=== PATIENT | male | born 1960 | race American Indian/Alaskan Native ===

== ENCOUNTER 2019-01-16 20:02 | Inpatient (IN) | payer SELFPAY ==
--- NOTE | 2019-01-16 21:09 | C.PDOC ---
History Of Present Illness 58 y/o male presents for complaints of chronic leg pain and chronic cellulitis, worsening over the last couple years. Denies hx of diabetes. Patient also denies fevers, chills. Noticed foul-smelling odor coming from area and seepage from both legs. Time Seen by Provider: 01/16/19 21:08 Chief Complaint (Nursing): Abnormal Skin Integrity History Per: Patient History/Exam Limitations: no limitations Onset/Duration Of Symptoms: Days Current Symptoms Are (Timing): Still Present Location Of Injury: Right: Leg, Left: Leg Quality Of Symptoms: Painful, Draining Severity: Severe Pain Scale Rating Of: 7 Recent travel outside of the [place]: No Additional History Per: Patient Past Medical History Reviewed: Historical Data, Nursing Documentation, Vital Signs Vital Signs: Last Vital Signs Temp 98.3 F 01/16/19 20:58 Pulse 100 H 01/16/19 20:58 Resp 20 01/16/19 20:58 BP 160/92 H 01/16/19 20:58 Pulse Ox 100 01/16/19 20:58 - Medical History PMH: Chronic Pain (and cellulitis to B/L legs) Family History: States: Unknown Family Hx - Social History Hx Tobacco Use: No Hx Alcohol Use: No Hx Substance Use: No - Immunization History Hx Tetanus Toxoid Vaccination: No Hx Influenza Vaccination: No Hx Pneumococcal Vaccination: No Review Of Systems Constitutional: Negative for: Fever, Chills Cardiovascular: Negative for: Chest Pain Respiratory: Negative for: Shortness of Breath Gastrointestinal: Negative for: Nausea, Vomiting Musculoskeletal: Positive for: Leg Pain (B/L leg pain) Skin: Positive for: Rash (Chronic cellulitis to B/L legs) Neurological: Negative for: Weakness, Numbness Physical Exam - Physical Exam Appears: Non-toxic, No Acute Distress Skin: Warm, Dry Head: Normacephalic Eye(s): bilateral: Normal Inspection Oral Mucosa: Moist Neck: Trachea Midline, Supple Chest: Symmetrical Cardiovascular: Rhythm Regular Respiratory: No Rales, No Rhonchi, No Wheezing Gastrointestinal/Abdominal: Bowel Sounds (good), Soft, No Tenderness, No Distention, Other (Obese abdomen) Back: No CVA Tenderness Extremity: Pedal Edema (bilateral), Capillary Refill (< 2 sec), Other (Chronic, significant vascular stasis skin changes to bilateral lower extremities; Large 4x7 cm draining wound to left lateral leg, ulcer, + Seepage from right lower extremity, macerated left ventral aspect of foot) Extremity: Bilateral: Normal ROM Pulses: Left Dorsalis Pedis: Normal, Right Dorsalis Pedis: Normal Neurological/Psych: Oriented x3 Gait: With Assistance ED Course And Treatment - Laboratory Results Result Diagrams: 01/16/19 21:52 01/16/19 21:52 ECG: Interpreted By Me, Viewed By Me ECG Rhythm: Sinus Rhythm (96), Nonspecific Changes O2 Sat by Pulse Oximetry: 100 (RA) Pulse Ox Interpretation: Normal - Radiology CXR: Interpreted by Me, Viewed By Me CXR Interpretation: Yes: Cardiomegaly, Other (vasc congestion). No: Infiltrates, Fracture Progress Note: Labs, EKG, CXR ordered and reviewed. spoke with podiatry, will come and see the pt Disposition Discussed With DrAlyson: Nura Torres Comment: accepted the pt on his service and took over the care at 11:55 PM Doctor Will See Patient In The: Hospital Counseled Patient/Family Regarding: Studies Performed, Diagnosis - Disposition Disposition: HOSPITALIZED Disposition Time: 21:08 Condition: FAIR Forms: [employer] ([place]) - POA Present On Arrival: Pressure Ulcer - Clinical Impression Clinical Impression: Skin ulcer, Cellulitis, Skin maceration, Venous (peripheral) insufficiency - Scribe Statement The provider has reviewed the documentation as recorded by the Brittani Tolliver Provider Attestation: All medical record entries made by the Marielibe were at my direction and personally dictated by me. I have reviewed the chart and agree that the record accurately reflects my personal performance of the history, physical exam, medical decision making, and the department course for this patient. I have also personally directed, reviewed, and agree with the discharge instructions and disposition. Decision To Admit - Pt Status Changed To: Hospital Disposition Of: Inpatient - Admit Certification Admit to Inpatient:: After my assessment, the patient will require hospitalization for at least two midnights. This is because of the severity of symptoms shown, intensity of services needed, and/or the medical risk in this patient being treated as an outpatient. - InPatient: Physician Admission Certification: I certify that this patient requires 2 or more midnights of care for the following reason:: After my assessment, the patient will require hospitalization for at least two midnights. This is because of the severity of symptoms shown, intensity of services needed, and/or the medical risk in this patient being treated as an outpatient. - . Bed Request Type: Regular Admitting Physician: Nura Torres Patient Diagnosis: Skin ulcer, Cellulitis, Skin maceration, Venous (peripheral) insufficiency
[2019-01-16 21:58] LABS: BASO # 0.1 K/uL (0.0-0.2); BASO % 1.2 % (0.0-2.0); EOS # 0.1 K/uL (0.0-0.7); EOS % 1.8 % (0.0-4.0); HEMOGLOBIN 12.1 g/dL (12.0-18.0); LYMPH # 1.2 K/uL (1.0-4.3); LYMPH % 16.2 % (20.0-40.0); MEAN CELL VOLUME 84.8 fL (80.0-94.0); MEAN CORPUSCULAR HEMOGLOBIN 27.4 pg (27.0-31.0); MEAN CORPUSCULAR HGB CONC 32.3 g/dL (33.0-37.0); MEAN PLATELET VOLUME 8.4 fL (7.2-11.7); MONO # 0.8 K/uL (0.0-0.8); MONO % 10.4 % (0.0-10.0); NEUT # 5.4 K/uL (1.8-7.0); NEUT % 70.4 % (50.0-75.0); RBC 4.4 Mil/uL (4.40-5.90); RED CELL DISTRIBUTION WIDTH 17.1 % (11.5-14.5); WHITE BLOOD COUNT 7.6 K/uL (4.8-10.8)
[2019-01-16 21:59] LABS: SQUAMOUS EPITHIAL < 1 /hpf (0-5); URINE BILIRUBIN NEGATIVE (NEGATIVE); URINE CLARITY Hazy (Clear); URINE COLOR Yellow (YELLOW); URINE GLUCOSE (UA) NORMAL (Normal); URINE LEUKOCYTE ESTERASE NEG Leu/uL (Negative); URINE PROTEIN NEGATIVE (NEGATIVE)
[2019-01-16 22:02] LABS: VENOUS BLOOD GAS BASE EXCESS 3.4 mmol/L (0.0-2.0); VENOUS BLOOD GAS PCO2 50 mmHg (40-60); VENOUS BLOOD GAS PO2 17 mm/Hg (30-55); VENOUS BLOOD PH 7.38 (7.32-7.43)
[2019-01-16 22:03] LABS: URINE BLOOD TRACE (NEGATIVE)
[2019-01-16 22:04] LABS: URINE HYALINE CAST 2 /lpf (0-2)
[2019-01-16 22:06] LABS: INR 1.3; PROTHROMBIN TIME 14.4 SECONDS (9.7-12.2)
[2019-01-16 22:11] LABS: ALB/GLOB RATIO 0.9 (1.0-2.1); ALBUMIN 3.8 g/dL (3.5-5.0); ALT/SGPT 63 U/L (21-72); AST/SGOT 106 U/L (17-59); BLOOD UREA NITROGEN 14 mg/dL (9-20); GFR NON-AFRICAN AMERICAN > 60; LIPASE 186 U/L (23-300)
[2019-01-16] MEDS ORDERED: Piperacillin/Tazobact 3.375 gm 100 ML IVPB STA (23:48)
[2019-01-16] MEDS ORDERED: Vancomycin 1 GM 1 GM/250 ML BAG IVPB STA (23:48)
[2019-01-17] MEDS ORDERED: Piperacillin/Tazobact 3.375 gm 100 ML IVPB ONE ×2 (00:30→06:16)
[2019-01-17] MEDS ORDERED: Vancomycin 1 GM 1 GM/250 ML BAG IVPB ONE (00:31)
--- NOTE | 2019-01-17 04:05 | CP.PCM.HP ---
<Virgilio Penn M - Last Filed: 01/17/19 06:07> History of Present Illness - History of Present Illness History of Present Illness: H&P for hospitalist Dr. Trores. 58 M w/ no PMHx presents to ED for leg pain/ leg ulcer / gangrene of b/l lower legs/ chronic venous changes. Patient states he has had leg pain for the last several months and it has been simply getting worse. Patient denies having received medical care. Patient denies trauma, injury to the legs. Patient states the ulcer on L leg occasionally has drainage from it. Patient cannot recall exact duration of leg condition and denies prolonged exposure to the cold weather. Patient states earlier today he had to pass a bowel movement; however, after prolonged duration of holding bowel movement and an inability to find a bathroom, patient had a bowel movement on himself. Patient denies urinary, bowel incontinences. ROS; Denies headaches, vision changes, nausea, vomiting, chest pain, SOB, abdominal pain, constipation, diarrhea, difficulty urinating, PMD: None PMHx: None PSHx: None Allergies: Denies FHx: Mother -breast Ca, Father - diabetes SHx: Denies smoking, drinking, drug use, states he lives in a rental Present on Admission - Present on Admission Any Indicators Present on Admission: No History of DVT/PE: No History of Uncontrolled Diabetes: No Urinary Catheter: No Decubitus Ulcer Present: No Review of Systems - Constitutional Constitutional: absent: Chills, Headache - EENT Eyes: absent: Blurred Vision, Change in Vision Ears: absent: Decreased Hearing, Ear Discharge Nose/Mouth/Throat: absent: Nasal Congestion - Cardiovascular Cardiovascular: absent: Chest Pain, Chest Pain at Rest - Respiratory Respiratory: absent: Dyspnea, Dyspnea on Exertion - Gastrointestinal Gastrointestinal: absent: Constipation, Diarrhea - Genitourinary Genitourinary: absent: Change in Urinary Stream - Musculoskeletal Musculoskeletal: absent: Arthralgias Additional comments: L leg pain - Integumentary Integumentary: Wounds Additional comments: hyperpigmentation of b/l le - Neurological Neurological: absent: Abnormal Hearing, Numbness - Psychiatric Psychiatric: absent: Confusion, Depression Past Patient History - Infectious Disease Hx of Infectious Diseases: None - Past Social History Smoking Status: Never Smoked - PSYCHIATRIC Hx Substance Use: No - SURGICAL HISTORY Hx Surgeries: No - ANESTHESIA Hx Anesthesia: No Meds Allergies/Adverse Reactions: Allergies Allergy/AdvReac Type Severity Reaction Status Date / Time No Known Allergies Allergy Verified 01/16/19 21:00 Physical Exam - Constitutional Appears: Non-toxic, No Acute Distress - Head Exam Head Exam: NORMAL INSPECTION - Eye Exam Eye Exam: EOMI, Normal appearance Pupil Exam: NORMAL ACCOMODATION - ENT Exam ENT Exam: Mucous Membranes Moist - Respiratory Exam Respiratory Exam: Clear to Auscultation Bilateral, NORMAL BREATHING PATTERN. absent: Rales, Rhonchi, Wheezes - Cardiovascular Exam Cardiovascular Exam: +S1, +S2. absent: Systolic Murmur - GI/Abdominal Exam GI & Abdominal Exam: Normal Bowel Sounds, Soft - Extremities Exam Extremities exam: Negative for: calf tenderness Additional comments: Left LE anterior/ lateral skin ulcer/ cellulits approximately 7 cm by 7cm no drainage noted - hyperpigmented skin, dry, pealing off - B/L Feet gangrenous in appearing, foul order - Back Exam Back exam: absent: CVA tenderness (L), CVA tenderness (R) - Neurological Exam Neurological exam: Alert, CN II-XII Intact, Oriented x3 - Psychiatric Exam Psychiatric exam: Normal Affect, Normal Mood Results - Vital Signs Recent Vital Signs: Last Vital Signs Temp 98.3 F 01/16/19 20:58 Pulse 100 H 01/16/19 20:58 Resp 20 01/16/19 20:58 BP 160/92 H 01/16/19 20:58 Pulse Ox 100 01/16/19 23:57 - Labs Result Diagrams: 01/16/19 21:52 01/16/19 21:52 Labs: Laboratory Results - last 24 hr 01/16/19 01/16/19 01/16/19 21:52 21:52 21:52 WBC 7.6 RBC 4.40 Hgb 12.1 Hct 37.3 MCV 84.8 MCH 27.4 MCHC 32.3 L RDW 17.1 H Plt Count 323 MPV 8.4 Neut % (Auto) 70.4 Lymph % (Auto) 16.2 L [place] % (Auto) 10.4 H Eos % (Auto) 1.8 Baso % (Auto) 1.2 Neut # (Auto) 5.4 Lymph # (Auto) 1.2 [place] # (Auto) 0.8 Eos # (Auto) 0.1 Baso # (Auto) 0.1 PT 14.4 H INR 1.3 APTT 36 H pO2 VBG pH VBG pCO2 VBG HCO3 VBG Total CO2 VBG O2 Sat (Calc) VBG Base Excess VBG Potassium Glucose Lactate Sodium Potassium Chloride Carbon Dioxide Anion Gap BUN Creatinine Est GFR ( Amer) Est GFR (Non-Af Amer) Random Glucose Calcium Magnesium Total Bilirubin AST ALT Alkaline Phosphatase NT-Pro-B Natriuret Pep Total Protein Albumin Globulin Albumin/Globulin Ratio Lipase Venous Blood Potassium Urine Color Yellow Urine Clarity Hazy Urine pH 6.0 Ur Specific [place] 1.013 Urine Protein Negative Urine Glucose (UA) Normal Urine Ketones Negative Urine Blood Trace H Urine Nitrate Negative Urine Bilirubin Negative Urine Urobilinogen 2.0 Ur Leukocyte Esterase Neg Urine WBC (Auto) 3 Urine RBC (Auto) 1 Ur Squamous Epith Cells < 1 Hyaline Casts 2 01/16/19 01/16/19 01/17/19 21:52 21:58 01:07 WBC RBC Hgb Hct MCV MCH MCHC RDW Plt Count MPV Neut % (Auto) Lymph % (Auto) [place] % (Auto) Eos % (Auto) Baso % (Auto) Neut # (Auto) Lymph # (Auto) [place] # (Auto) Eos # (Auto) Baso # (Auto) PT INR APTT pO2 17 L VBG pH 7.38 VBG pCO2 50 VBG HCO3 25.6 VBG Total CO2 31.1 H VBG O2 Sat (Calc) 28.3 L VBG Base Excess 3.4 H VBG Potassium 3.1 L Glucose 98 Lactate 1.5 Sodium 140 143.0 Potassium 3.5 L Chloride 105 111.0 H Carbon Dioxide 28 Anion Gap 10 BUN 14 Creatinine 1.0 Est GFR ( Amer) > 60 Est GFR (Non-Af Amer) > 60 Random Glucose 107 Calcium 9.0 Magnesium 2.1 Total Bilirubin 1.1 AST 106 H ALT 63 Alkaline Phosphatase 62 NT-Pro-B Natriuret Pep 100 Total Protein 7.8 Albumin 3.8 Globulin 4.1 H Albumin/Globulin Ratio 0.9 L Lipase 186 Venous Blood Potassium 3.1 L Urine Color Urine Clarity Urine pH Ur Specific [place] Urine Protein Urine Glucose (UA) Urine Ketones Urine Blood Urine Nitrate Urine Bilirubin Urine Urobilinogen Ur Leukocyte Esterase Urine WBC (Auto) Urine RBC (Auto) Ur Squamous Epith Cells Hyaline Casts Assessment & Plan - Assessment and Plan (Free Text) Assessment: 58 M comes to ED for evaluation of feet, pt has gangrenous appearance of b/l feet, left leg ulcer, skin break down of lower extremities knee distally. Plan: B/L gangrene feet Leg ulcer/cellulits - Vanc & Zosyn - CT LE subcutaneous edema - F/u podiatry recs - F/u echo - F/u blood cultures PPx - DVT: heparin 5000 units SC <Nura Torres - Last Filed: 01/17/19 06:17> Results - Vital Signs Recent Vital Signs: Last Vital Signs Temp 99.5 F 01/17/19 04:57 Pulse 94 H 01/17/19 04:57 Resp 16 01/17/19 04:57 BP 172/82 H 01/17/19 04:57 Pulse Ox 100 01/17/19 04:57 - Labs Result Diagrams: 01/16/19 21:52 01/16/19 21:52 Labs: Laboratory Results - last 24 hr 01/16/19 01/16/19 01/16/19 21:52 21:52 21:52 WBC 7.6 RBC 4.40 Hgb 12.1 Hct 37.3 MCV 84.8 MCH 27.4 MCHC 32.3 L RDW 17.1 H Plt Count 323 MPV 8.4 Neut % (Auto) 70.4 Lymph % (Auto) 16.2 L [place] % (Auto) 10.4 H Eos % (Auto) 1.8 Baso % (Auto) 1.2 Neut # (Auto) 5.4 Lymph # (Auto) 1.2 [place] # (Auto) 0.8 Eos # (Auto) 0.1 Baso # (Auto) 0.1 PT 14.4 H INR 1.3 APTT 36 H pO2 VBG pH VBG pCO2 VBG HCO3 VBG Total CO2 VBG O2 Sat (Calc) VBG Base Excess VBG Potassium Glucose Lactate Sodium Potassium Chloride Carbon Dioxide Anion Gap BUN Creatinine Est GFR ( Amer) Est GFR (Non-Af Amer) Random Glucose Calcium Magnesium Total Bilirubin AST ALT Alkaline Phosphatase NT-Pro-B Natriuret Pep Total Protein Albumin Globulin Albumin/Globulin Ratio Lipase Venous Blood Potassium Urine Color Yellow Urine Clarity Hazy Urine pH 6.0 Ur Specific [place] 1.013 Urine Protein Negative Urine Glucose (UA) Normal Urine Ketones Negative Urine Blood Trace H Urine Nitrate Negative Urine Bilirubin Negative Urine Urobilinogen 2.0 Ur Leukocyte Esterase Neg Urine WBC (Auto) 3 Urine RBC (Auto) 1 Ur Squamous Epith Cells < 1 Hyaline Casts 2 01/16/19 01/16/19 01/17/19 21:52 21:58 01:07 WBC RBC Hgb Hct MCV MCH MCHC RDW Plt Count MPV Neut % (Auto) Lymph % (Auto) [place] % (Auto) Eos % (Auto) Baso % (Auto) Neut # (Auto) Lymph # (Auto) [place] # (Auto) Eos # (Auto) Baso # (Auto) PT INR APTT pO2 17 L VBG pH 7.38 VBG pCO2 50 VBG HCO3 25.6 VBG Total CO2 31.1 H VBG O2 Sat (Calc) 28.3 L VBG Base Excess 3.4 H VBG Potassium 3.1 L Glucose 98 Lactate 1.5 Sodium 140 143.0 Potassium 3.5 L Chloride 105 111.0 H Carbon Dioxide 28 Anion Gap 10 BUN 14 Creatinine 1.0 Est GFR ( Amer) > 60 Est GFR (Non-Af Amer) > 60 Random Glucose 107 Calcium 9.0 Magnesium 2.1 Total Bilirubin 1.1 AST 106 H ALT 63 Alkaline Phosphatase 62 NT-Pro-B Natriuret Pep 100 Total Protein 7.8 Albumin 3.8 Globulin 4.1 H Albumin/Globulin Ratio 0.9 L Lipase 186 Venous Blood Potassium 3.1 L Urine Color Urine Clarity Urine pH Ur Specific [place] Urine Protein Urine Glucose (UA) Urine Ketones Urine Blood Urine Nitrate Urine Bilirubin Urine Urobilinogen Ur Leukocyte Esterase Urine WBC (Auto) Urine RBC (Auto) Ur Squamous Epith Cells Hyaline Casts Assessment & Plan - Date & Time Date: 01/17/19 (I have seen and examined the patient. I agree with the findings and plan of care as documented by Dr. Pnen. Patient with lower extremity ulcers and cellulitis. Chronic venous stasis changes. Vascular insufficiency. Consult to podiatry. Radha and Sandra for now. Wound and blood cultures. Monitor for acute changes.) Time: 06:15 Attending/Attestation - Attestation I have personally seen and examined this patient.: Yes I have fully participated in the care of the patient.: Yes I have reviewed all pertinent clinical information: Yes
[2019-01-17] MEDS: Piperacill/Tazo 3.375gm in Dex 3.375 GM/50 ML BAG IVPB SCH ×4 (06:10→23:53)
[2019-01-17 06:51] LABS: BASO # 0.1 K/uL (0.0-0.2); BASO % 1.2 % (0.0-2.0); EOS # 0.1 K/uL (0.0-0.7); EOS % 1.1 % (0.0-4.0); HEMOGLOBIN 10.6 g/dL (12.0-18.0); LYMPH # 1.1 K/uL (1.0-4.3); LYMPH % 13.5 % (20.0-40.0); MEAN CORPUSCULAR HEMOGLOBIN 27.7 pg (27.0-31.0); MEAN PLATELET VOLUME 8.4 fL (7.2-11.7); MONO # 0.8 K/uL (0.0-0.8); MONO % 10.1 % (0.0-10.0); NEUT # 5.8 K/uL (1.8-7.0); NEUT % 74.1 % (50.0-75.0); RBC 3.84 Mil/uL (4.40-5.90); RED CELL DISTRIBUTION WIDTH 16.8 % (11.5-14.5); WHITE BLOOD COUNT 7.8 K/uL (4.8-10.8)
[2019-01-17 07:03] LABS: ALB/GLOB RATIO 0.9 (1.0-2.1); ALBUMIN 3.1 g/dL (3.5-5.0); ALT/SGPT 61 U/L (21-72); AST/SGOT 87 U/L (17-59); BLOOD UREA NITROGEN 10 mg/dL (9-20); CALCIUM 8.2 mg/dl (8.6-10.4); GFR NON-AFRICAN AMERICAN > 60
[2019-01-17] MEDS ORDERED: Potassium Chloride 20 mEq ER Tab PO ONE ×2 (07:45→10:00)
--- NOTE | 2019-01-17 10:04 | CT ---
Date of service: 01/16/2019 PROCEDURE: CT of the lower extremities without contrast HISTORY: tib/fib. ankle feet, lower extremity swelling and cellulitis COMPARISON: No prior similar study available for comparison. TECHNIQUE: Axial and reformatted coronal and sagittal CT images of the lower extremities were obtained without IV contrast administration. Total exam DLP: 568.8 FINDINGS: There is a diffuse subcutaneous edema and fat stranding in the lower extremities more prominent [id number] associated with mild skin thickening especially in the distal lower extremity. No evidence of discrete fluid collection or drainable fluid collection. No definite evidence of cortical erosion or periosteal thickening noted in the lower extremity to suggest acute osteomyelitis. Mild diffuse hyperattenuation of the muscles noted [id number] suggestive of possible mild myositis. IMPRESSION: Diffuse lower extremities edema and subcutaneous stranding associated with slight skin thickening. The differential consideration includes CHF versus venous or arterial disease. No evidence of abscess formation or subcutaneous emphysema. No CT evidence of osteomyelitis. Preliminary report was submitted by [facility] Radiology.
--- NOTE | 2019-01-17 10:18 | RAD ---
Date of service: 01/16/2019 HISTORY: SOB COMPARISON: None available. FINDINGS: LUNGS: No active pulmonary disease. PLEURA: No significant pleural effusion identified, no pneumothorax apparent. CARDIOVASCULAR: No aortic atherosclerotic calcification present. Cardiac size appears somewhat prominent, at least in part due to frontal technique. No pulmonary vascular congestion. OSSEOUS STRUCTURES: No significant abnormalities. VISUALIZED UPPER ABDOMEN: Normal. OTHER FINDINGS: None. IMPRESSION: Possible cardiomegaly. No pulmonary vascular congestion. No acute consolidation bilaterally.
[2019-01-17] MEDS: Vancomycin 1 gm/NS 200 ml 1 GM/200 ML BAG IVPB SCH (12:16)
--- NOTE | 2019-01-17 13:35 | CP.PCM.PN ---
<Lynda Cacereseca - Last Filed: 01/17/19 16:07> Subjective - Date & Time of Evaluation Date of Evaluation: 01/17/19 Time of Evaluation: 08:40 - Subjective Subjective: Patient examined at bedside in no acute distress. Patient reports LE pain is much improved since admission. Patient reports he has no history of medical care, and no diagnoses he knows of. Denies chest pain, orthopnea, dyspnea on exertion, cough, abdominal distension, previous episode of edema Objective - Vital Signs/Intake and Output Vital Signs (last 24 hours): Temp Pulse Resp BP Pulse Ox 98.8 F 110 H 18 101/63 100 01/17/19 08:25 01/17/19 08:25 01/17/19 08:25 01/17/19 08:25 01/17/19 08:25 - Medications Medications: Current Medications Heparin Sodium (Porcine) (Heparin) 5,000 units SC Q8 [facility] Last Admin: 01/17/19 06:26 Dose: 5,000 units Piperacillin Sod/Tazobactam Sod (Zosyn 3.375 Gm Iv Premix) 3.375 gm in 50 mls @ 100 mls/hr IVPB Q6H [facility]; Protocol Last Admin: 01/17/19 11:36 Dose: 100 mls/hr Vancomycin/Sodium Chloride (Vancomycin 1 Gm/Ns 200 Ml) 1 gm in 200 mls @ 133 mls/hr IVPB Q12H [facility]; Protocol Stop: 01/22/19 12:01 Last Admin: 01/17/19 12:16 Dose: 133 mls/hr Potassium Chloride (Potassium Chloride 20 Meq/100 Ml) 20 meq in 100 mls @ 50 mls/hr IVPB ONCE ONE Stop: 01/17/19 15:27 - Labs Labs: 01/17/19 06:47 01/17/19 06:47 PT 14.4 SECONDS (9.7-12.2) H 01/16/19 21:52 INR 1.3 01/16/19 21:52 APTT 36 SECONDS (21-34) H 01/16/19 21:52 - Constitutional Appears: Non-toxic, No Acute Distress, Unkempt - Head Exam Head Exam: ATRAUMATIC, NORMAL INSPECTION, NORMOCEPHALIC - Eye Exam Eye Exam: EOMI, Normal appearance - ENT Exam ENT Exam: Mucous Membranes Moist, Normal Exam - Neck Exam Neck Exam: Normal Inspection - Respiratory Exam Respiratory Exam: Clear to Ausculation Bilateral, NORMAL BREATHING PATTERN. absent: Decreased Breath Sounds, Rales, Wheezes - Cardiovascular Exam Cardiovascular Exam: REGULAR RHYTHM, +S1, +S2. absent: Tachycardia - GI/Abdominal Exam GI & Abdominal Exam: Soft, Normal Bowel Sounds. absent: Distended, Tenderness - Extremities Exam Extremities Exam: Pedal Edema (3+ b/l) Additional comments: LE: b/l LE pitting edema, 3+, toes to below knees erythema dry, flaking skin diffusely distal lateral LLE wounds exposed, shallow, weeping serous fluid, pink moist tissue skin discoloration left foot>right - Neurological Exam Neurological Exam: Alert, Awake - Psychiatric Exam Psychiatric exam: Normal Affect, Normal Mood - Skin Skin Exam: Dry, Erythema, Warm. absent: Intact, Normal Color Assessment and Plan (1) Lower extremity cellulitis Assessment & Plan: CT LE: IV Abx, vanc/zosyn f/u wound culture wound care Podiatry consult, Dr. Pichardo ID consult, Dr. Guajardo Status: Acute (2) Bilateral lower extremity edema Assessment & Plan: f/u lower extremity duplex, r/o DVT Echo: EF WNL, AV opens with gradient, suggesting LV outflow obstruction no evidence of renal dysfunction BUN/Cr: 10/1.1 BP stable and WNL Status: Acute (3) Hypokalemia Assessment & Plan: K 2.6 today monitor and replete as needed Status: Acute - Assessment and Plan (Free Text) Assessment: Ppx VTE: heparin GI: not indicated Discussed with Dr. Maloney -Ada Caceres, PGY-1 <Lisandro Maloney - Last Filed: 01/19/19 15:13> Objective - Vital Signs/Intake and Output Vital Signs (last 24 hours): Temp Pulse Resp BP Pulse Ox 100.8 F H 88 20 150/71 95 01/19/19 14:57 01/19/19 09:06 01/19/19 07:00 01/19/19 09:07 01/19/19 07:00 Intake and Output: 01/19/19 01/19/19 06:59 18:59 Intake Total 1500 Output Total 900 Balance 600 - Medications Medications: Current Medications Heparin Sodium (Porcine) (Heparin) 5,000 units SC Q8 [facility] Last Admin: 01/19/19 13:24 Dose: 5,000 units Piperacillin Sod/Tazobactam Sod (Zosyn 3.375 Gm Iv Premix) 3.375 gm in 50 mls @ 100 mls/hr IVPB Q6H [facility]; Protocol Last Admin: 01/19/19 11:04 Dose: 100 mls/hr Vancomycin/Sodium Chloride (Vancomycin 1 Gm/Ns 200 Ml) 1 gm in 200 mls @ 133 mls/hr IVPB Q12H [facility]; Protocol Stop: 01/22/19 12:01 Last Admin: 01/19/19 11:03 Dose: 133 mls/hr Magnesium Oxide (Mag-Ox) 800 mg PO TID [facility] Last Admin: 01/19/19 13:23 Dose: 800 mg Potassium Chloride (K-Dur 20 Meq Er Tab) 40 meq PO ONCE ONE Stop: 01/19/19 15:31 Last Admin: 01/19/19 14:34 Dose: 40 meq - Labs Labs: 01/19/19 09:04 01/19/19 09:04 PT 14.4 SECONDS (9.7-12.2) H 01/16/19 21:52 INR 1.3 01/16/19 21:52 APTT 36 SECONDS (21-34) H 01/16/19 21:52 Attending/Attestation - Attestation I have personally seen and examined this patient.: Yes I have fully participated in the care of the patient.: Yes I have reviewed all pertinent clinical information, including history, physical exam and plan: Yes Notes (Text): Lower Extremity cellulitis
--- NOTE | 2019-01-17 14:49 | CARD ---
APPROVED REPORT Date of service: 01/17/2019 EXAM: Two-dimensional and M-mode echocardiogram with Doppler and color Doppler. Other Information Technically limited study due to body habitus. INDICATION B/L LE EDEMA RISK FACTORS Obesity 2D DIMENSIONS IVSd1.5 (0.7-1.1cm)LVDd4.8 (3.9-5.9cm) LVOT Diameter2.1 (1.8-2.4cm)PWd1.5 (0.7-1.1cm) LA Qdpxrs36 (18-58mL)LVDs3.0 (2.5-4.0cm) FS (%) 37.7 %LVEF (%)67.7 (>50%) LVEF (Lacey's)70.32 %IVC0.00 cm M-Mode DIMENSIONS Left Atrium (MM)4.44 (2.5-4.0cm)IVSd1.37 (0.7-1.1cm) Aortic Root2.93 (2.2-3.7cm)LVDd5.40 (4.0-5.6cm) Aortic Cusp Exc.2.02 (1.5-2.0cm)PWd1.32 (0.7-1.1cm) FS (%) 41 %LVDs3.20 (2.0-3.8cm) LVEF (%)71 (>50%) Aortic Valve AoV Peak Nzedjpxs414.5cm/sAoV VTI41.5cmAO Peak GR.23mmHg LVOT Peak Lxyehhfo549.9cm/sLVOT VTI21.33cmAO Mean GR.12mmHg RUDY (VMAX)1.37zg6FER (VTI)1.76cm2 Mitral Valve MV E Hxxicisa12.5cm/sMV A Xoeepozx18.3cm/sE/A ratio1.2 TDI Lateral E' Peak V8.74cm/sMedial E' Peak V11.00cm/sE/Lateral E'11.2 E/Medial E'8.9 Tricuspid Valve TR Peak Qyqiulph538fo/sTR Peak Gr.39wqZkBXQB27paHl LEFT VENTRICLE The left ventricle is normal size. There is normal left ventricular wall thickness. The left ventricular function is normal. The left ventricular ejection fraction is within the normal range. No regional wall motion abnormalities noted. The left ventricular diastolic function is normal. No left ventricle thrombus noted on this study. There is no ventricular septal defect visualized. There is no left ventricular aneurysm. There is no mass noted in the left ventricle. RIGHT VENTRICLE The right ventricle is normal size. There is normal right ventricular wall thickness. The right ventricular systolic function is normal. ATRIA The left atrium size is normal. The right atrium size is normal. The interatrial septum is intact with no evidence for an atrial septal defect. AORTIC VALVE The aortic valve is normal in structure and function. There is mild aortic regurgitation. AV opens normally with gradient . This gradient could be from LVOT suggesting LV outflow obstruction There is no aortic valvular vegetation. MITRAL VALVE The mitral valve is normal in structure and function. There is no evidence of mitral valve prolapse. There is no mitral valve stenosis. There is no mitral valve regurgitation noted. TRICUSPID VALVE The tricuspid valve is normal in structure and function. There is no tricuspid valve regurgitation noted. There is no tricuspid valve prolapse or vegetation. There is no tricuspid valve stenosis. PULMONIC VALVE The pulmonary valve is normal in structure and function. There is no pulmonic valvular regurgitation. There is no pulmonic valvular stenosis. GREAT VESSELS The aortic root is normal in size. The ascending aorta is normal in size. The pulmonary artery is normal. The IVC is normal in size and collapses >50% with inspiration. PERICARDIAL EFFUSION The pericardium appears normal. There is no pleural effusion. <Conclusion> The left ventricular function is normal. The left ventricular ejection fraction is within the normal range. No regional wall motion abnormalities noted. There is mild aortic regurgitation. AV opens normally with gradient . This gradient could be from LVOT suggesting LV outflow obstruction
--- NOTE | 2019-01-17 21:47 | CP.PCM.CON ---
History of Present Illness - History of Present Illness History of Present Illness: dictated Past Patient History - Infectious Disease Hx of Infectious Diseases: None - Past Social History Smoking Status: Never Smoked - MUSCULOSKELETAL/RHEUMATOLOGICAL Hx Falls: No - PSYCHIATRIC Hx Substance Use: No - SURGICAL HISTORY Hx Surgeries: No - ANESTHESIA Hx Anesthesia: No Meds Allergies/Adverse Reactions: Allergies Allergy/AdvReac Type Severity Reaction Status Date / Time No Known Allergies Allergy Verified 01/16/19 21:00 - Medications Medications: Current Medications Heparin Sodium (Porcine) (Heparin) 5,000 units SC Q8 CECILIA Last Admin: 01/17/19 21:17 Dose: 5,000 units Piperacillin Sod/Tazobactam Sod (Zosyn 3.375 Gm Iv Premix) 3.375 gm in 50 mls @ 100 mls/hr IVPB Q6H CECILIA; Protocol Last Admin: 01/17/19 17:57 Dose: 100 mls/hr Vancomycin/Sodium Chloride (Vancomycin 1 Gm/Ns 200 Ml) 1 gm in 200 mls @ 133 mls/hr IVPB Q12H CECILIA; Protocol Stop: 01/22/19 12:01 Last Admin: 01/17/19 12:16 Dose: 133 mls/hr Results - Vital Signs Recent Vital Signs: Last Vital Signs Temp 99.8 F H 01/17/19 15:00 Pulse 95 H 01/17/19 15:00 Resp 20 01/17/19 15:00 BP 145/69 01/17/19 15:00 Pulse Ox 98 01/17/19 15:00 - Labs Result Diagrams: 01/17/19 06:47 01/17/19 06:47 Labs: Laboratory Results - last 24 hr 01/16/19 01/16/19 01/16/19 21:52 21:52 21:52 WBC 7.6 RBC 4.40 Hgb 12.1 Hct 37.3 MCV 84.8 MCH 27.4 MCHC 32.3 L RDW 17.1 H Plt Count 323 MPV 8.4 Neut % (Auto) 70.4 Lymph % (Auto) 16.2 L [place] % (Auto) 10.4 H Eos % (Auto) 1.8 Baso % (Auto) 1.2 Neut # (Auto) 5.4 Lymph # (Auto) 1.2 [place] # (Auto) 0.8 Eos # (Auto) 0.1 Baso # (Auto) 0.1 PT 14.4 H INR 1.3 APTT 36 H pO2 VBG pH VBG pCO2 VBG HCO3 VBG Total CO2 VBG O2 Sat (Calc) VBG Base Excess VBG Potassium Glucose Lactate Sodium Potassium Chloride Carbon Dioxide Anion Gap BUN Creatinine Est GFR ( Amer) Est GFR (Non-Af Amer) Random Glucose Calcium Phosphorus Magnesium Total Bilirubin AST ALT Alkaline Phosphatase NT-Pro-B Natriuret Pep Total Protein Albumin Globulin Albumin/Globulin Ratio Lipase Venous Blood Potassium Urine Color Yellow Urine Clarity Hazy Urine pH 6.0 Ur Specific [place] 1.013 Urine Protein Negative Urine Glucose (UA) Normal Urine Ketones Negative Urine Blood Trace H Urine Nitrate Negative Urine Bilirubin Negative Urine Urobilinogen 2.0 Ur Leukocyte Esterase Neg Urine WBC (Auto) 3 Urine RBC (Auto) 1 Ur Squamous Epith Cells < 1 Hyaline Casts 2 01/16/19 01/16/19 01/17/19 21:52 21:58 01:07 WBC RBC Hgb Hct MCV MCH MCHC RDW Plt Count MPV Neut % (Auto) Lymph % (Auto) [place] % (Auto) Eos % (Auto) Baso % (Auto) Neut # (Auto) Lymph # (Auto) [place] # (Auto) Eos # (Auto) Baso # (Auto) PT INR APTT pO2 17 L VBG pH 7.38 VBG pCO2 50 VBG HCO3 25.6 VBG Total CO2 31.1 H VBG O2 Sat (Calc) 28.3 L VBG Base Excess 3.4 H VBG Potassium 3.1 L Glucose 98 Lactate 1.5 Sodium 140 143.0 Potassium 3.5 L Chloride 105 111.0 H Carbon Dioxide 28 Anion Gap 10 BUN 14 Creatinine 1.0 Est GFR ( Amer) > 60 Est GFR (Non-Af Amer) > 60 Random Glucose 107 Calcium 9.0 Phosphorus Magnesium 2.1 Total Bilirubin 1.1 AST 106 H ALT 63 Alkaline Phosphatase 62 NT-Pro-B Natriuret Pep 100 Total Protein 7.8 Albumin 3.8 Globulin 4.1 H Albumin/Globulin Ratio 0.9 L Lipase 186 Venous Blood Potassium 3.1 L Urine Color Urine Clarity Urine pH Ur Specific [place] Urine Protein Urine Glucose (UA) Urine Ketones Urine Blood Urine Nitrate Urine Bilirubin Urine Urobilinogen Ur Leukocyte Esterase Urine WBC (Auto) Urine RBC (Auto) Ur Squamous Epith Cells Hyaline Casts 01/17/19 01/17/19 06:47 06:47 WBC 7.8 RBC 3.84 L Hgb 10.6 L Hct 32.2 L MCV 84.0 MCH 27.7 MCHC 33.0 RDW 16.8 H Plt Count 288 MPV 8.4 Neut % (Auto) 74.1 Lymph % (Auto) 13.5 L [place] % (Auto) 10.1 H Eos % (Auto) 1.1 Baso % (Auto) 1.2 Neut # (Auto) 5.8 Lymph # (Auto) 1.1 [place] # (Auto) 0.8 Eos # (Auto) 0.1 Baso # (Auto) 0.1 PT INR APTT pO2 VBG pH VBG pCO2 VBG HCO3 VBG Total CO2 VBG O2 Sat (Calc) VBG Base Excess VBG Potassium Glucose Lactate Sodium 137 Potassium 2.6 L Chloride 107 Carbon Dioxide 24 Anion Gap 8 L BUN 10 Creatinine 1.1 Est GFR ( Amer) > 60 Est GFR (Non-Af Amer) > 60 Random Glucose 123 H Calcium 8.2 L Phosphorus 3.5 Magnesium 1.8 Total Bilirubin 1.3 AST 87 H ALT 61 Alkaline Phosphatase 60 NT-Pro-B Natriuret Pep Total Protein 6.6 Albumin 3.1 L Globulin 3.5 Albumin/Globulin Ratio 0.9 L Lipase Venous Blood Potassium Urine Color Urine Clarity Urine pH Ur Specific [place] Urine Protein Urine Glucose (UA) Urine Ketones Urine Blood Urine Nitrate Urine Bilirubin Urine Urobilinogen Ur Leukocyte Esterase Urine WBC (Auto) Urine RBC (Auto) Ur Squamous Epith Cells Hyaline Casts
[2019-01-18] MEDS: Vancomycin 1 gm/NS 200 ml 1 GM/200 ML BAG IVPB SCH ×2 (00:42→12:07)
[2019-01-18] MEDS: Piperacill/Tazo 3.375gm in Dex 3.375 GM/50 ML BAG IVPB SCH ×4 (05:40→23:46)
--- NOTE | 2019-01-18 06:04 | CON ---
DATE: 01/17/2019 HISTORY OF PRESENT ILLNESS: The patient is a 58-year-old male. He comes in with leg pain and leg ulcerations. 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 He came to the emergency room with leg pain. This has been going on for several months. I asked him if he has a home, he says he is living with his friends and has ulcers, especially on the left leg. He had some rash. He has a dressing at this time. He cannot recall being in prolonged exposure to cold weather; however, he was admitted with bilateral leg ulcerations. He denies any other symptoms, and he has no past medical history. He denies any smoking, drinking or drug use. He says he lives in a rental place. Denies any diabetes. He says he is going to come to know today if he has diabetes. He is otherwise thankful to be taken care of. He denies any other complaints. PAST SURGICAL HISTORY: Negative. ALLERGIES: HE IS NOT ALLERGIC TO ANY MEDICINE. SOCIAL HISTORY: Father had diabetes. Mother had breast cancer. REVIEW OF SYSTEMS: No other review of systems he complains of. PHYSICAL EXAMINATION: VITAL SIGNS: His BMI is 30.5. He is 6 feet tall. His vitals show that his temperature is 99.8, pulse 95, blood pressure 145/69, respirations are 20. HEENT: Head is atraumatic and normocephalic. Pupils are reacting to light. NECK: Supple. LUNGS: Clear. HEART: S1 and S2, regular. ABDOMEN: Soft, nontender. No guarding, no rigidity present. EXTREMITIES: Have bilateral edema. He has very dry hyperpigmented skin and dark. ASSESSMENT AND PLAN: He has dark colored and has flaky, dry scaly skin. The left leg had weeping serous edema and has discoloration. Due to his dark color, I cannot make out much except that he has bilateral lower leg edema with cellulitis, and left leg has ulcerations with the dressing. At this time, he had venous Dopplers done, which are negative. Labs show white count is 7.8, hemoglobin 10.6, hematocrit 32.2, platelet count is 288. Chemistry shows potassium is 2.6 which the residents are supplementing. His potassium is really very low. He was started on vancomycin and Zosyn, and we will continue the same at this time. He had blood cultures which are negative. Wound culture is pending. The patient has bilateral scaly swollen legs with cellulitis and hypokalemia. He denies any diabetes, but his sugar is 123. It may be worthwhile to look into hemoglobin A1c. Urine was benign though urine glucose is normal. So, I doubt that and we will follow with the global sales director. They also did lower extremity CT which shows diffuse lower extremity edema and subcutaneous stranding associated with slight skin thickening. Differential includes congestive heart failure versus venous stasis or arterial disease. No CAT scan evidence of osteomyelitis. No evidence of abscess or subcutaneous emphysema. So at this time, there is no evidence of that. Plan is to continue the antibiotics, to check vancomycin peak and trough. CAT scan is negative for osteomyelitis. We will look up peripheral arterial studies if there is any arterial insufficiency and to continue these until some improvement is noted. Then, we can switch to oral antibiotic. We will follow. Darrick Guajardo MD
--- NOTE | 2019-01-18 07:33 | CP.PCM.PN ---
<Kendall Dahl - Last Filed: 01/18/19 20:14> Subjective - Date & Time of Evaluation Date of Evaluation: 01/18/19 Time of Evaluation: 07:00 - Subjective Subjective: PGY-[address] Maloney Patient is seen and examined at bedside. Patient states feeling tired today. Patient admits to pain in his left lower extremity but improved, denies fever, chills, chest pain, sob, abdominal pain, nausea, vomiting, diarrhea constipation or urinary symptoms. Objective - Vital Signs/Intake and Output Vital Signs (last 24 hours): Temp Pulse Resp BP Pulse Ox 99.8 F H 78 20 138/71 97 01/17/19 23:28 01/17/19 23:28 01/17/19 23:28 01/17/19 23:28 01/17/19 23:28 - Medications Medications: Current Medications Heparin Sodium (Porcine) (Heparin) 5,000 units SC Q8 CECILIA Last Admin: 01/18/19 05:40 Dose: 5,000 units Piperacillin Sod/Tazobactam Sod (Zosyn 3.375 Gm Iv Premix) 3.375 gm in 50 mls @ 100 mls/hr IVPB Q6H CECILIA; Protocol Last Admin: 01/18/19 05:40 Dose: 100 mls/hr Vancomycin/Sodium Chloride (Vancomycin 1 Gm/Ns 200 Ml) 1 gm in 200 mls @ 133 mls/hr IVPB Q12H CECILIA; Protocol Stop: 01/22/19 12:01 Last Admin: 01/18/19 00:42 Dose: 133 mls/hr - Labs Labs: 01/17/19 06:47 01/17/19 06:47 PT 14.4 SECONDS (9.7-12.2) H 01/16/19 21:52 INR 1.3 01/16/19 21:52 APTT 36 SECONDS (21-34) H 01/16/19 21:52 - Constitutional Appears: Non-toxic, No Acute Distress - Head Exam Head Exam: ATRAUMATIC, NORMAL INSPECTION, NORMOCEPHALIC - Eye Exam Eye Exam: EOMI, Normal appearance - ENT Exam ENT Exam: Mucous Membranes Moist, Normal Exam - Respiratory Exam Respiratory Exam: Clear to Ausculation Bilateral, NORMAL BREATHING PATTERN. absent: Rales, Rhonchi, Wheezes - Cardiovascular Exam Cardiovascular Exam: REGULAR RHYTHM, +S1, +S2 - GI/Abdominal Exam GI & Abdominal Exam: Soft, Normal Bowel Sounds. absent: Distended, Tenderness Additional comments: obese abdomen - Extremities Exam Extremities Exam: Full ROM, Pedal Edema. absent: Tenderness Additional comments: b/l LE pitting edema, 3+ dry, flaking skin diffusely dressing in place left lower extremity, yellow fluid oozing from dressing. - Back Exam Back Exam: NORMAL INSPECTION. absent: tenderness - Neurological Exam Neurological Exam: Alert, Awake, Oriented x3 - Psychiatric Exam Psychiatric exam: Normal Affect, Normal Mood - Skin Skin Exam: Dry, Normal Color, Warm Assessment and Plan - Assessment and Plan (Free Text) Plan: Lower Extremity cellulitis CT LE: Diffuse lower extremities edema and subcutaneous stranding associated with slight skin thickening. The differential consideration includes CHF versus venous or arterial disease.No evidence of abscess formation or subcutaneous emphysema.No CT evidence of osteomyelitis. Cont IV Abx, vanc/zosyn f/u wound culture wound care Podiatry consult, Dr. Pichardo ID consult, Dr. Guajardo Bilateral LE edema f/u lower extremity duplex, - no evidence of DVT bilaterally Echo: EF WNL, AV opens with gradient, suggesting LV outflow obstruction no evidence of renal dysfunction BUN/Cr: 10/.1 BP stable and WNL Lasix 20 mg PO Daily Hypokalemia K 2.8 today from 2.6 yesterday Potassium 40 meq in am , 40 meq in 4 hours Magnesium repleted as well, 1 bag now Mag 800 mg PO TID f/u am labs replete as needed PPX DVT: heparin GI: not indicated Pland discussed with Dr Haider Dahl, PGY-1 <Lisandro Maloney - Last Filed: 01/19/19 15:11> Objective - Vital Signs/Intake and Output Vital Signs (last 24 hours): Temp Pulse Resp BP Pulse Ox 100.8 F H 88 20 150/71 95 01/19/19 14:57 01/19/19 09:06 01/19/19 07:00 01/19/19 09:07 01/19/19 07:00 Intake and Output: 01/19/19 01/19/19 06:59 18:59 Intake Total 1500 Output Total 900 Balance 600 - Medications Medications: Current Medications Heparin Sodium (Porcine) (Heparin) 5,000 units SC Q8 CECILIA Last Admin: 01/19/19 13:24 Dose: 5,000 units Piperacillin Sod/Tazobactam Sod (Zosyn 3.375 Gm Iv Premix) 3.375 gm in 50 mls @ 100 mls/hr IVPB Q6H CECILIA; Protocol Last Admin: 01/19/19 11:04 Dose: 100 mls/hr Vancomycin/Sodium Chloride (Vancomycin 1 Gm/Ns 200 Ml) 1 gm in 200 mls @ 133 mls/hr IVPB Q12H CECILIA; Protocol Stop: 01/22/19 12:01 Last Admin: 01/19/19 11:03 Dose: 133 mls/hr Magnesium Oxide (Mag-Ox) 800 mg PO TID CECILIA Last Admin: 01/19/19 13:23 Dose: 800 mg Potassium Chloride (K-Dur 20 Meq Er Tab) 40 meq PO ONCE ONE Stop: 01/19/19 15:31 Last Admin: 01/19/19 14:34 Dose: 40 meq - Labs Labs: 01/19/19 09:04 01/19/19 09:04 PT 14.4 SECONDS (9.7-12.2) H 01/16/19 21:52 INR 1.3 01/16/19 21:52 APTT 36 SECONDS (21-34) H 01/16/19 21:52 Attending/Attestation - Attestation I have personally seen and examined this patient.: Yes I have fully participated in the care of the patient.: Yes I have reviewed all pertinent clinical information, including history, physical exam and plan: Yes Notes (Text): Lower Extremity cellulitis
[2019-01-18 08:02] LABS: BASO # 0.1 K/uL (0.0-0.2); BASO % 1.1 % (0.0-2.0); EOS # 0.2 K/uL (0.0-0.7); EOS % 2.2 % (0.0-4.0); HEMOGLOBIN 10.2 g/dL (12.0-18.0); LYMPH # 1.3 K/uL (1.0-4.3); LYMPH % 17.5 % (20.0-40.0); MEAN CELL VOLUME 84.7 fL (80.0-94.0); MEAN CORPUSCULAR HEMOGLOBIN 27.9 pg (27.0-31.0); MEAN PLATELET VOLUME 8.8 fL (7.2-11.7); MONO # 0.7 K/uL (0.0-0.8); MONO % 9.5 % (0.0-10.0); NEUT # 5.3 K/uL (1.8-7.0); NEUT % 69.7 % (50.0-75.0); RBC 3.64 Mil/uL (4.40-5.90); RED CELL DISTRIBUTION WIDTH 17.1 % (11.5-14.5); WHITE BLOOD COUNT 7.6 K/uL (4.8-10.8)
[2019-01-18 08:32] LABS: ALB/GLOB RATIO 0.9 (1.0-2.1); ALBUMIN 2.9 g/dL (3.5-5.0); ALT/SGPT 53 U/L (21-72); AST/SGOT 69 U/L (17-59); BLOOD UREA NITROGEN 9 mg/dL (9-20); CALCIUM 7.9 mg/dl (8.6-10.4); GFR NON-AFRICAN AMERICAN > 60
[2019-01-18] MEDS ORDERED: Potassium Chloride 20 mEq ER Tab PO ONE ×3 (09:10→15:00)
--- NOTE | 2019-01-18 10:58 | CP.PCM.CON ---
History of Present Illness - History of Present Illness History of Present Illness: Podiatry Consult - Dr. Pichardo 58 y/o male with no reported past medical history seen at bedside for left leg ulcer. He states he has had the ulcer on and off for a couple of years. Denies treating it or seeing a doctor for it. States he does not have a regular medical doctor so he does not know much about his current medical status. Denies any pain to the left leg. Denies any recent trauma. Denies seeing any pus come from the ulcer but admits he sees a thin yellow-christina fluid drain from it often. Denies tingling, numbness or burning in the lower extremities. Denies F/C/N/V/CP/SOB PSHx: none All: NKDA FamHx: mother has hx of breast cancer, father hx of DM SocHx: denies EtOH, cigarette or illicit drug use Review of Systems - Review of Systems All systems: reviewed and no additional remarkable complaints except (per HPI) Past Patient History - Infectious Disease Hx of Infectious Diseases: None - Past Social History Smoking Status: Never Smoked - MUSCULOSKELETAL/RHEUMATOLOGICAL Hx Falls: No - PSYCHIATRIC Hx Substance Use: No - SURGICAL HISTORY Hx Surgeries: No - ANESTHESIA Hx Anesthesia: No Meds Allergies/Adverse Reactions: Allergies Allergy/AdvReac Type Severity Reaction Status Date / Time No Known Allergies Allergy Verified 01/16/19 21:00 - Medications Medications: Current Medications Heparin Sodium (Porcine) (Heparin) 5,000 units SC Q8 CECILIA Last Admin: 01/18/19 05:40 Dose: 5,000 units Piperacillin Sod/Tazobactam Sod (Zosyn 3.375 Gm Iv Premix) 3.375 gm in 50 mls @ 100 mls/hr IVPB Q6H CECILIA; Protocol Last Admin: 01/18/19 05:40 Dose: 100 mls/hr Vancomycin/Sodium Chloride (Vancomycin 1 Gm/Ns 200 Ml) 1 gm in 200 mls @ 133 mls/hr IVPB Q12H CECILIA; Protocol Stop: 01/22/19 12:01 Last Admin: 01/18/19 00:42 Dose: 133 mls/hr Physical Exam - Constitutional Appears: Well, Non-toxic, No Acute Distress - Extremities Exam Additional comments: Lower extremity exam: Vasc: DP/PT pulses palpable 2/4. Temperature gradient is warm to cool. CFT < 3 sec to all digits. Non-pitting edema noted to B/L lower extremities distal to tibial tuberosity extending to dorsum of foot. Derm: Open ulceration noted to lateral aspect of left mid leg measuring approximatewly 7cm x 7cm x 0.1cm with additional smaller ulcerations proximal and posterior approx 2cm x 1 cm x 0.1cm and 1cm x 3cm x 0.1cm in size. All wounds exhibit 60% granular and 40% fibrotic tissue wound bases with regular wound borders. Minimal serous drainage noted from wounds on previous dressing. No active drainage or purulence, no malodor, no fluctuance or abscess formation Neuro: protective sensation grossly intact Ortho: no tenderness to palpation of left leg ulcer. No tenderness on posterior calf squeeze B/L - Neurological Exam Neurological exam: Alert, Oriented x3 - Psychiatric Exam Psychiatric exam: Normal Affect, Normal Mood Results - Vital Signs Recent Vital Signs: Last Vital Signs Temp 100.0 F H 01/18/19 07:30 Pulse 89 01/18/19 07:30 Resp 20 01/18/19 07:30 BP 136/74 01/18/19 07:30 Pulse Ox 96 01/18/19 07:30 - Labs Result Diagrams: 01/18/19 07:40 01/18/19 07:40 Labs: Laboratory Results - last 24 hr 01/18/19 01/18/19 07:40 07:40 WBC 7.6 RBC 3.64 L Hgb 10.2 L Hct 30.8 L MCV 84.7 MCH 27.9 MCHC 33.0 RDW 17.1 H Plt Count 290 MPV 8.8 Neut % (Auto) 69.7 Lymph % (Auto) 17.5 L [place] % (Auto) 9.5 Eos % (Auto) 2.2 Baso % (Auto) 1.1 Neut # (Auto) 5.3 Lymph # (Auto) 1.3 [place] # (Auto) 0.7 Eos # (Auto) 0.2 Baso # (Auto) 0.1 Sodium 136 Potassium 2.8 L Chloride 105 Carbon Dioxide 25 Anion Gap 8 L BUN 9 Creatinine 1.1 Est GFR ( Amer) > 60 Est GFR (Non-Af Amer) > 60 Random Glucose 103 Calcium 7.9 L Phosphorus 3.0 Magnesium 2.0 Total Bilirubin 0.9 AST 69 H D ALT 53 Alkaline Phosphatase 56 Total Protein 6.3 Albumin 2.9 L Globulin 3.4 Albumin/Globulin Ratio 0.9 L Assessment & Plan - Assessment and Plan (Free Text) Assessment: 58 y/o male with left leg ulceration likely secondary to venous stasis Plan Patient seen and evaluated Discussed plan with Dr. Pichardo Lower extremity CT reviewed- no acute findings suggestive of underlying bone infection or abscess/fluid collection Local wound care- site cleaned with saline and dressed with betadine, ABD, DSD and GARRETT compression Venous duplex negative for DVT No plan for surgical intervention at this time Will continue to follow
[2019-01-18] MEDS ORDERED: Magnesium Sulfate 1 gm in D5W 1 GM/100 ML BAG IVPB ONE (12:30)
--- NOTE | 2019-01-18 12:49 | VASCLAB ---
Date of service: 01/17/2019 PROCEDURE: Lower Extremity Venous Duplex Exam. HISTORY: LE edema PRIORS: None. TECHNIQUE: Bilateral common femoral, femoral, popliteal and posterior tibial, peroneal and great saphenous veins were evaluated. Flow was assessed with color Doppler, compressibility, assessment of phasic flow and augmentation response. Report prepared by Uriah Peck, ALYSSA, RVT FINDINGS: RIGHT: 1. Common Femoral Vein: 1.1. Compressibility - Fully compressible: Thrombus - None : Flow - Phasic: Augmentation -Normal: Reflux - None. 2. Femoral Vein: 2.1. Compressibility - Fully compressible: Thrombus - None : Flow - Phasic: Augmentation -Normal: Reflux - None. 3. Popliteal Vein: 3.1. Compressibility - Fully compressible: Thrombus - None : Flow - Phasic: Augmentation -Normal: Reflux - None. 4. Posterior Tibial Vein: 4.1. Compressibility - Fully compressible: Thrombus - None: Flow - Phasic: Augmentation -Normal: Reflux - None. 5. Peroneal Vein: 5.1. Compressibility - Fully compressible: Thrombus - None: Flow - Phasic: Augmentation -Normal: Reflux - None. 6. Great Saphenous Vein: 6.1. Compressibility - Fully compressible: Thrombus - None: Flow - Phasic: Augmentation - Normal: Reflux - None. LEFT: 1. Common Femoral Vein: 1.1. Compressibility - Fully compressible: Thrombus - None: Flow - Phasic: Augmentation -Normal: Reflux - None. 2. Femoral Vein: 2.1. Compressibility - Fully compressible: Thrombus - None: Flow - Phasic: Augmentation -Normal: Reflux - None. 3. Popliteal Vein: 3.1. Compressibility - Fully compressible: Thrombus - None : Flow - Phasic: Augmentation -Normal: Reflux - None. 4. Posterior Tibial Vein: 4.1. Compressibility - Fully compressible: Thrombus - None: Flow - Phasic: Augmentation -Normal: Reflux - None. 5. Peroneal Vein: 5.1. Compressibility - Fully compressible: Thrombus - None: Flow - Phasic: Augmentation -Normal: Reflux - None. 6. Great Saphenous Vein: 6.1. Compressibility - Fully compressible: Thrombus - None: Flow - Phasic: Augmentation - Normal: Reflux - None. OTHER FINDINGS: Right: None significant. Left: None significant. IMPRESSION: Right: No evidence of deep or superficial vein thrombosis of the right lower extremity. Normal valve function noted of the right side. Left: No evidence of deep or superficial vein thrombosis of the left lower extremity. Normal valve function noted of the left side.
[2019-01-18] MEDS: Magnesium Oxide 400 mg Tab UD PO SCH ×2 (13:10→17:14)
[2019-01-19] MEDS: Vancomycin 1 gm/NS 200 ml 1 GM/200 ML BAG IVPB SCH ×2 (00:19→11:03)
[2019-01-19] MEDS: Piperacill/Tazo 3.375gm in Dex 3.375 GM/50 ML BAG IVPB SCH ×3 (05:12→19:00)
[2019-01-19] MEDS: Magnesium Oxide 400 mg Tab UD PO SCH ×3 (09:07→19:00)
[2019-01-19 09:17] LABS: BASO # 0.1 K/uL (0.0-0.2); BASO % 1.2 % (0.0-2.0); EOS # 0.2 K/uL (0.0-0.7); EOS % 2.5 % (0.0-4.0); HEMOGLOBIN 10.2 g/dL (12.0-18.0); LYMPH # 1.5 K/uL (1.0-4.3); MEAN CELL VOLUME 84.5 fL (80.0-94.0); MEAN CORPUSCULAR HEMOGLOBIN 27.5 pg (27.0-31.0); MEAN CORPUSCULAR HGB CONC 32.5 g/dL (33.0-37.0); MEAN PLATELET VOLUME 8.6 fL (7.2-11.7); MONO # 0.6 K/uL (0.0-0.8); MONO % 7.1 % (0.0-10.0); NEUT # 5.5 K/uL (1.8-7.0); NEUT % 70.2 % (50.0-75.0); NRBC % 0.1 % (0.0-2.0); RBC 3.71 Mil/uL (4.40-5.90); RED CELL DISTRIBUTION WIDTH 17.2 % (11.5-14.5); WHITE BLOOD COUNT 7.8 K/uL (4.8-10.8)
[2019-01-19 09:39] LABS: ALB/GLOB RATIO 0.8 (1.0-2.1); ALBUMIN 2.9 g/dL (3.5-5.0); ALT/SGPT 44 U/L (21-72); AST/SGOT 62 U/L (17-59); BLOOD UREA NITROGEN 8 mg/dL (9-20); CALCIUM 7.8 mg/dl (8.6-10.4); GFR NON-AFRICAN AMERICAN > 60
[2019-01-19] MEDS ORDERED: Simethicone 80 mg Chewtab PO ONE (09:39)
[2019-01-19] MEDS ORDERED: Potassium Chloride 20 mEq ER Tab PO ONE ×2 (12:00→15:30)
--- NOTE | 2019-01-19 13:33 | RAD ---
Date of service: 01/19/2019 HISTORY: fevers COMPARISON: Comparison is made with 01/16/2019 FINDINGS: LUNGS: [id number] pulmonary vascular congestion is noted. No evidence of focal consolidation in the lungs. PLEURA: No significant pleural effusion identified, no pneumothorax apparent. CARDIOVASCULAR: No aortic atherosclerotic calcification present. Normal cardiac size. No pulmonary vascular congestion. OSSEOUS STRUCTURES: No significant abnormalities. VISUALIZED UPPER ABDOMEN: Normal. OTHER FINDINGS: None. IMPRESSION: No definite evidence of pneumonia in this portable exam.
--- NOTE | 2019-01-19 16:34 | CP.PCM.PN ---
<Kendall Dahl - Last Filed: 01/19/19 18:23> Subjective - Date & Time of Evaluation Date of Evaluation: 01/19/19 Time of Evaluation: 08:00 - Subjective Subjective: PGY-[address] Maloney Patient is seen and examined at bedside. Patient states feeling dizziness and headaches since yesterday afternoon. Patient started to feel a dull, left lower quadrant pain after eating lunch yesterday, and continues to bother him this morning. States he felt like this only two times in his life. Admits to some fevers yesterday, denies chillls, chest pain, sob, nausea, vomiting diarrhea or constipation tolerating diet well. denies leg pain, states leg swelling is improving. Objective - Vital Signs/Intake and Output Vital Signs (last 24 hours): Temp Pulse Resp BP Pulse Ox 100.8 F H 88 20 150/71 95 01/19/19 14:57 01/19/19 09:06 01/19/19 07:00 01/19/19 09:07 01/19/19 07:00 Intake and Output: 01/19/19 01/19/19 06:59 18:59 Intake Total 1500 Output Total 900 Balance 600 - Medications Medications: Current Medications Heparin Sodium (Porcine) (Heparin) 5,000 units SC Q8 [facility] Last Admin: 01/19/19 13:24 Dose: 5,000 units Piperacillin Sod/Tazobactam Sod (Zosyn 3.375 Gm Iv Premix) 3.375 gm in 50 mls @ 100 mls/hr IVPB Q6H [facility]; Protocol Last Admin: 01/19/19 11:04 Dose: 100 mls/hr Vancomycin/Sodium Chloride (Vancomycin 1 Gm/Ns 200 Ml) 1 gm in 200 mls @ 133 mls/hr IVPB Q12H [facility]; Protocol Stop: 01/22/19 12:01 Last Admin: 01/19/19 11:03 Dose: 133 mls/hr Magnesium Oxide (Mag-Ox) 800 mg PO TID [facility] Last Admin: 01/19/19 13:23 Dose: 800 mg - Labs Labs: 01/19/19 09:04 01/19/19 09:04 PT 14.4 SECONDS (9.7-12.2) H 01/16/19 21:52 INR 1.3 01/16/19 21:52 APTT 36 SECONDS (21-34) H 01/16/19 21:52 - Constitutional Appears: Non-toxic, No Acute Distress - Head Exam Head Exam: ATRAUMATIC, NORMOCEPHALIC - Eye Exam Eye Exam: EOMI, Normal appearance - ENT Exam ENT Exam: Normal Exam - Neck Exam Neck Exam: Full ROM, Normal Inspection - Respiratory Exam Respiratory Exam: Clear to Ausculation Bilateral, NORMAL BREATHING PATTERN. absent: Rales, Rhonchi, Wheezes - Cardiovascular Exam Cardiovascular Exam: REGULAR RHYTHM, +S1, +S2 - GI/Abdominal Exam GI & Abdominal Exam: Soft, Normal Bowel Sounds. absent: Tenderness Additional comments: obese abdomen - Extremities Exam Extremities Exam: Full ROM, Pedal Edema. absent: Tenderness Additional comments: LE 1+ pitting edema b/l right LE dressing middle 1/3 lower leg, c/d/i skin not warm to palpation skin scaling noticed bilateral LE - Neurological Exam Neurological Exam: Alert, Awake, Oriented x3 - Psychiatric Exam Psychiatric exam: Normal Affect, Normal Mood - Skin Skin Exam: Dry, Normal Color, Warm Assessment and Plan - Assessment and Plan (Free Text) Plan: Lower Extremity cellulitis CT LE: Diffuse lower extremities edema and subcutaneous stranding associated with slight skin thickening. The differential consideration includes CHF versus venous or arterial disease.No evidence of abscess formation or subcutaneous emphysema.No CT evidence of osteomyelitis. Bcx - negative for 48 hours wound culture - positive for klebsiella oxytoca, B hemolytic strep B - sensitive to vanco PAtient febrile this morning 100.8F repeat blood cultures Cxray - unremarkable lactate - f/u ID consult, Dr. Guajardo - increased Vanco dose from 1000mg to 1400mg BID - will follow up ID recs Bilateral LE edema f/u lower extremity duplex, - no evidence of DVT bilaterally Echo: EF WNL, AV opens with gradient, suggesting LV outflow obstruction no evidence of renal dysfunction BUN/Cr: 8/1.0 BP stable and WNL Lasix 20 mg PO Daily - discontinue for possible cause of hypokalemia Hypokalemia K 2.9 this morning after repleting yesterday with total 80 meq KCL PO magnesium within normal limitis KCL 40 meq in the am, another 40 meq in the afternoon Mag 800 mg PO TID f/u K in the afternoon f/u am labs discontinue lasix replete as needed Nephro consult - Dr Campos - f/u recs - Urine K+: f/u - Urine Na: f/u - Urine Osm: f/u - Aldosterone/Renin ratio: f/u - abdominal US ordered LE desquamation/dryness - Lac-hydrin lotion 5gm BID - Clomitrazole cream Qdaily Abdominal discomfort/distention - simethicone PO x 1 - abdominal US ordered as per Nephro - continue to monitor PPX DVT: heparin GI: not indicated PT evaluation Plan discussed with Dr Haider Dahl <Lisandro Maloney - Last Filed: 01/19/19 19:06> Objective - Vital Signs/Intake and Output Vital Signs (last 24 hours): Temp Pulse Resp BP Pulse Ox 99.2 F 97 H 18 171/91 H 96 01/19/19 15:57 01/19/19 15:00 01/19/19 15:00 01/19/19 15:00 01/19/19 15:00 - Medications Medications: Current Medications Clotrimazole (Lotrimin 1%) 1 gm TOP DAILY [facility] Heparin Sodium (Porcine) (Heparin) 5,000 units SC Q8 [facility] Last Admin: 01/19/19 13:24 Dose: 5,000 units Piperacillin Sod/Tazobactam Sod (Zosyn 3.375 Gm Iv Premix) 3.375 gm in 50 mls @ 100 mls/hr IVPB Q6H [facility]; Protocol Last Admin: 01/19/19 11:04 Dose: 100 mls/hr Vancomycin HCl 1,400 mg/ (Sodium Chloride) 250 mls @ 166.6 mls/hr IVPB Q12H [facility]; Protocol Lactic Acid (Lac-Hydrin 12% Lotion (225 G)) 5 gm EXT BID [facility] Magnesium Oxide (Mag-Ox) 800 mg PO TID [facility] Last Admin: 01/19/19 13:23 Dose: 800 mg - Labs Labs: 01/19/19 09:04 01/19/19 17:34 PT 14.4 SECONDS (9.7-12.2) H 01/16/19 21:52 INR 1.3 01/16/19 21:52 APTT 36 SECONDS (21-34) H 01/16/19 21:52 Attending/Attestation - Attestation I have personally seen and examined this patient.: Yes I have fully participated in the care of the patient.: Yes I have reviewed all pertinent clinical information, including history, physical exam and plan: Yes Notes (Text): Lower Extremity cellulitis
--- NOTE | 2019-01-19 16:38 | CP.PCM.CON ---
History of Present Illness - History of Present Illness History of Present Illness: Consult note for Dr. Campos Patient is a 58 year old male with no past medical history who presented to the hospital with complaints of bilateral leg swelling and leg pain since September 2018. He states the swelling has become worse over time. He has tried tea tree oil and bengay without relief. Upon admission, it was noted that the patient was hypokalmeic and has been given 80meq daily without improvement; thus, Nephrology was consulted. The patient states he currently has no complaints and feels fine. He says his LE are better than prior to admission. He also notes that his abdomen "looked like he was " in October, but that "resolved on its own." Of note, he has "normal BMs twice a day" (described as liquid, like paste, not watery). He also takes "Black seed for his bowels once a week" which causes him to have 4 soft stools in a day. He does not have a PMD and only goes to his pharmacist. He currently denies chest pain, palpitations, dyspnea, nausea, vomiting, fevers, headaches, dizziness, abdominal pain, dysuria, constipation, and diarrhea. PMHx: denies SurgHx: denies FamHx: Father-HTN; Mother-Breast Ca SocHx: denies tobacco, alcohol, and drug use; lives in ; works as a courrier. Allergies: NKDA Medications: herbal black seed once per week "for his bowels" Review of Systems - Constitutional Constitutional: absent: Fever, Headache - EENT Ears: absent: Dizziness - Cardiovascular Cardiovascular: Leg Edema. absent: Chest Pain, Dyspnea, Lightheadedness, Rapid Heart Rate - Respiratory Respiratory: absent: Cough, Dyspnea - Gastrointestinal Gastrointestinal: absent: Abdominal Pain, Constipation, Diarrhea, Hematemesis, Hematochezia, Nausea, Vomiting - Genitourinary Genitourinary: absent: Change in Urinary Stream, Difficulty Urinating, Dysuria, Hematuria - Musculoskeletal Musculoskeletal: absent: Back Pain - Neurological Neurological: absent: Headaches - Endocrine Endocrine: absent: Palpitations Past Patient History - Infectious Disease Hx of Infectious Diseases: None - Past Social History Smoking Status: Never Smoked - MUSCULOSKELETAL/RHEUMATOLOGICAL Hx Falls: No - PSYCHIATRIC Hx Substance Use: No - SURGICAL HISTORY Hx Surgeries: No - ANESTHESIA Hx Anesthesia: No Meds Allergies/Adverse Reactions: Allergies Allergy/AdvReac Type Severity Reaction Status Date / Time No Known Allergies Allergy Verified 01/16/19 21:00 - Medications Medications: Current Medications Heparin Sodium (Porcine) (Heparin) 5,000 units SC Q8 [facility] Last Admin: 01/19/19 13:24 Dose: 5,000 units Piperacillin Sod/Tazobactam Sod (Zosyn 3.375 Gm Iv Premix) 3.375 gm in 50 mls @ 100 mls/hr IVPB Q6H [facility]; Protocol Last Admin: 01/19/19 11:04 Dose: 100 mls/hr Vancomycin/Sodium Chloride (Vancomycin 1 Gm/Ns 200 Ml) 1 gm in 200 mls @ 133 mls/hr IVPB Q12H [facility]; Protocol Stop: 01/22/19 12:01 Last Admin: 01/19/19 11:03 Dose: 133 mls/hr Magnesium Oxide (Mag-Ox) 800 mg PO TID [facility] Last Admin: 01/19/19 13:23 Dose: 800 mg Physical Exam - Constitutional Appears: No Acute Distress - Head Exam Head Exam: NORMAL INSPECTION - Eye Exam Eye Exam: EOMI, Normal appearance - ENT Exam ENT Exam: Mucous Membranes Moist - Respiratory Exam Respiratory Exam: Clear to Auscultation Bilateral, NORMAL BREATHING PATTERN. absent: Rales, Rhonchi, Wheezes, Respiratory Distress - Cardiovascular Exam Cardiovascular Exam: Tachycardia, REGULAR RHYTHM, +S1, +S2 - GI/Abdominal Exam GI & Abdominal Exam: Distended, Normal Bowel Sounds. absent: Guarding, Mass, Tenderness - Exam Exam: absent: Scrotal Swelling - Extremities Exam Extremities exam: Positive for: pedal edema (bilateral (L>R) edema extending up to the knee). Negative for: normal inspection, tenderness, pedal pulses present (diminished due to edema b/l) Additional comments: Issa inplace, dry, clean, and intact - Neurological Exam Neurological exam: Alert, Oriented x3 - Psychiatric Exam Psychiatric exam: Normal Affect, Normal Mood - Skin Skin Exam: Dry, Warm Results - Vital Signs Recent Vital Signs: Last Vital Signs Temp 100.8 F H 01/19/19 14:57 Pulse 88 01/19/19 09:06 Resp 20 01/19/19 07:00 BP 150/71 01/19/19 09:07 Pulse Ox 95 01/19/19 07:00 - Labs Result Diagrams: 01/19/19 09:04 01/19/19 09:04 Labs: Laboratory Results - last 24 hr 01/18/19 01/19/19 01/19/19 23:03 09:04 09:04 WBC 7.8 RBC 3.71 L Hgb 10.2 L Hct 31.3 L MCV 84.5 MCH 27.5 MCHC 32.5 L RDW 17.2 H Plt Count 301 MPV 8.6 Neut % (Auto) 70.2 Lymph % (Auto) 19.0 L [place] % (Auto) 7.1 Eos % (Auto) 2.5 Baso % (Auto) 1.2 Neut # (Auto) 5.5 Lymph # (Auto) 1.5 [place] # (Auto) 0.6 Eos # (Auto) 0.2 Baso # (Auto) 0.1 Sodium 137 Potassium 2.9 L Chloride 105 Carbon Dioxide 26 Anion Gap 9 L BUN 8 L Creatinine 1.0 Est GFR ( Amer) > 60 Est GFR (Non-Af Amer) > 60 Random Glucose 100 Calcium 7.8 L Phosphorus 3.1 Magnesium 2.0 Total Bilirubin 0.6 AST 62 H ALT 44 Alkaline Phosphatase 58 Total Protein 6.4 Albumin 2.9 L Globulin 3.6 Albumin/Globulin Ratio 0.8 L Vancomycin Trough 7.3 Assessment & Plan - Assessment and Plan (Free Text) Plan: 58 year old male with no past medical history who presented to the hospital with complaints of bilateral leg swelling and leg pain. Nephrology was consulted for hypokalemia. Hypokalemia - Hypokalemia possibly secondary to loose/frequent stool? undiagnosed HTN?; need further evaluation to determine cause - Patient is asymptomatic - Was given a total of 80meq daily since admission with minimal improvement - Urine K+: f/u - Urine Na: f/u - Urine Osm: f/u - Aldosterone/Renin ratio: f/u - Repeat BMP: f/u - Will continue to follow AM labs Elevated Blood Pressure reading - Will continue to monitor Abdominal Distension - Abdominal US ordered: f/u Case discussed with Dr. Andres Huang, PGY2
[2019-01-19] MEDS: Ammonium Lactate 12% Lotion (225 g) EXT SCH (19:00)
[2019-01-20] MEDS: Piperacill/Tazo 3.375gm in Dex 3.375 GM/50 ML BAG IVPB SCH ×3 (00:57→13:24)
[2019-01-20 07:48] LABS: BASO # 0.1 K/uL (0.0-0.2); BASO % 1.1 % (0.0-2.0); EOS # 0.2 K/uL (0.0-0.7); EOS % 2.5 % (0.0-4.0); HEMOGLOBIN 10.6 g/dL (12.0-18.0); LYMPH # 1.5 K/uL (1.0-4.3); LYMPH % 18.2 % (20.0-40.0); MEAN CELL VOLUME 83.8 fL (80.0-94.0); MEAN CORPUSCULAR HEMOGLOBIN 27.8 pg (27.0-31.0); MEAN CORPUSCULAR HGB CONC 33.1 g/dL (33.0-37.0); MEAN PLATELET VOLUME 8.5 fL (7.2-11.7); MONO # 0.5 K/uL (0.0-0.8); MONO % 6.5 % (0.0-10.0); NEUT % 71.7 % (50.0-75.0); RBC 3.8 Mil/uL (4.40-5.90); WHITE BLOOD COUNT 8.4 K/uL (4.8-10.8)
[2019-01-20] MEDS ORDERED: Metoprolol Succinate 12.5 mg XL Tab PO ONE (08:15)
[2019-01-20 08:19] LABS: ALB/GLOB RATIO 0.9 (1.0-2.1); ALBUMIN 3.1 g/dL (3.5-5.0); ALT/SGPT 44 U/L (21-72); AST/SGOT 65 U/L (17-59); BLOOD UREA NITROGEN 8 mg/dL (9-20); CALCIUM 8.2 mg/dl (8.6-10.4); GFR NON-AFRICAN AMERICAN > 60
[2019-01-20] MEDS: Ammonium Lactate 12% Lotion (225 g) EXT SCH ×2 (10:42→17:02)
[2019-01-20] MEDS: Potassium Chloride 20 mEq ER Tab PO SCH (10:42)
[2019-01-20] MEDS: Clotrimazole 1% Cream 15 GM TUBE TOP SCH (10:42)
[2019-01-20] MEDS: Magnesium Oxide 400 mg Tab UD PO SCH ×3 (10:43→17:01)
--- NOTE | 2019-01-20 11:11 | US ---
Abdominal ultrasound HISTORY: Abdominal pain. Distention. Comparison: None available. Technique: Real-time sonography was performed through the abdomen. FINDINGS: Liver: 20.5 centimeters in length. Increased echogenicity of the hepatic parenchymal cortex suggestive for fatty infiltration versus hepatic parenchymal disease. Clinical correlation. Gallbladder: No calculi or sludge. Normal wall thickness of 1.7 millimeters. Negative sonographic Cohen's sign. Common bile duct measures 4 millimeters, within normal limits. Limited visualization of the pancreas. Spleen measures 8.9 centimeters in length, within normal limits. Visualized aorta and IVC are grossly preserved. Right kidney: 11.7 x 5.0 x 5.6 centimeters. No calculi or hydronephrosis. Left Kidney: 11.2 x 5.3 x 5.9 centimeters. No calculi or hydronephrosis. Impression: Enlarged liver with associated increased echogenicity of the hepatic parenchymal cortex suggestive for fatty infiltration versus hepatic parenchymal disease. Clinical correlation. Limited visualization of the pancreas.
--- NOTE | 2019-01-20 11:14 | CP.PCM.PN ---
Subjective - Date & Time of Evaluation Date of Evaluation: 01/20/19 Time of Evaluation: 11:13 - Subjective Subjective: Podiatry Consult - Dr. Pichardo 58 y/o male with no reported past medical history seen at bedside for left leg ulcer. Denies any pain to the left leg. Denies any recent trauma. Denies seeing any pus come from the ulcer but admits he sees a thin yellow-christina fluid drain from it often. Denies tingling, numbness or burning in the lower extremities. Denies F/C/N/V/CP/SOB Objective - Vital Signs/Intake and Output Vital Signs (last 24 hours): Temp Pulse Resp BP Pulse Ox 99.9 F H 97 H 20 187/99 H 97 01/20/19 07:00 01/20/19 07:00 01/20/19 07:00 01/20/19 07:00 01/20/19 07:00 Intake and Output: 01/20/19 01/20/19 06:59 18:59 Intake Total 220 Output Total 650 Balance -650 220 - Medications Medications: Current Medications Acetaminophen (Tylenol 325mg Tab) 650 mg PO Q6 PRN PRN Reason: Fever >100.4 F Clotrimazole (Lotrimin 1%) 1 gm TOP DAILY [facility] Last Admin: 01/20/19 10:42 Dose: 1 gm Heparin Sodium (Porcine) (Heparin) 5,000 units SC Q8 [facility] Last Admin: 01/20/19 05:35 Dose: 5,000 units Piperacillin Sod/Tazobactam Sod (Zosyn 3.375 Gm Iv Premix) 3.375 gm in 50 mls @ 100 mls/hr IVPB Q6H [facility]; Protocol Last Admin: 01/20/19 05:35 Dose: 100 mls/hr Vancomycin HCl 1,400 mg/ (Sodium Chloride) 500 mls @ 166.6 mls/hr IVPB Q12H [facility]; Protocol Last Admin: 01/20/19 10:32 Dose: 166.6 mls/hr Lactic Acid (Lac-Hydrin 12% Lotion (225 G)) 5 gm EXT BID [facility] Last Admin: 01/20/19 10:42 Dose: 5 gm Loratadine (Claritin) 10 mg PO DAILY [facility] Last Admin: 01/20/19 10:42 Dose: 10 mg Losartan Potassium (Cozaar) 50 mg PO DAILY [facility] Last Admin: 01/20/19 10:42 Dose: 50 mg Magnesium Oxide (Mag-Ox) 800 mg PO TID [facility] Last Admin: 01/20/19 10:43 Dose: 800 mg Potassium Chloride (K-Dur 20 Meq Er Tab) 40 meq PO DAILY [facility] Last Admin: 01/20/19 10:42 Dose: 40 meq - Labs Labs: 01/20/19 07:42 01/20/19 07:42 PT 14.4 SECONDS (9.7-12.2) H 01/16/19 21:52 INR 1.3 01/16/19 21:52 APTT 36 SECONDS (21-34) H 01/16/19 21:52 - Constitutional Appears: Well, Non-toxic, No Acute Distress - Head Exam Head Exam: ATRAUMATIC, NORMOCEPHALIC - Extremities Exam Extremities Exam: Normal Inspection Additional comments: Lower extremity exam: Vasc: DP/PT pulses palpable 2/4. Temperature gradient is warm to cool. CFT < 3 sec to all digits. Non-pitting edema noted to B/L lower extremities distal to tibial tuberosity extending to dorsum of foot. Derm: Open ulceration noted to lateral aspect of left mid leg measuring approximatewly 7cm x 7cm x 0.1cm with additional smaller ulcerations proximal and posterior approx 2cm x 1 cm x 0.1cm and 1cm x 3cm x 0.1cm in size. All wounds exhibit 100% granular wound bases with regular wound borders. Minimal serous drainage noted from wounds on previous dressing. No active drainage or purulence, no malodor, no fluctuance or abscess formation Neuro: protective sensation grossly intact Ortho: no tenderness to palpation of left leg ulcer. No tenderness on posterior calf squeeze B/L - Neurological Exam Neurological Exam: Alert, Awake, Oriented x3 - Psychiatric Exam Psychiatric exam: Normal Affect, Normal Mood Assessment and Plan - Assessment and Plan (Free Text) Assessment: 58 y/o male with left leg ulceration likely secondary to venous stasis Plan: Patient seen and evaluated Discussed plan with Dr. Pichardo Lower extremity CT reviewed- no acute findings suggestive of underlying bone infection or abscess/fluid collection Local wound care- site cleaned with saline and dressed with betadine, ABD, DSD and GARRETT compression Venous duplex negative for DVT No plan for surgical intervention at this time Will continue to follow
--- NOTE | 2019-01-20 14:47 | CP.PCM.PN ---
Subjective - Date & Time of Evaluation Date of Evaluation: 01/20/19 Time of Evaluation: 14:46 - Subjective Subjective: HOSPITALIST SERVICE Objective - Vital Signs/Intake and Output Vital Signs (last 24 hours): Temp Pulse Resp BP Pulse Ox 99.9 F H 97 H 20 187/99 H 97 01/20/19 07:00 01/20/19 07:00 01/20/19 07:00 01/20/19 07:00 01/20/19 07:00 Intake and Output: 01/20/19 01/20/19 06:59 18:59 Intake Total 220 Output Total 650 Balance -650 220 - Medications Medications: Current Medications Acetaminophen (Tylenol 325mg Tab) 650 mg PO Q6 PRN PRN Reason: Fever >100.4 F Clotrimazole (Lotrimin 1%) 1 gm TOP DAILY [facility] Last Admin: 01/20/19 10:42 Dose: 1 gm Heparin Sodium (Porcine) (Heparin) 5,000 units SC Q8 [facility] Last Admin: 01/20/19 13:26 Dose: 5,000 units Vancomycin HCl 1,400 mg/ (Sodium Chloride) 500 mls @ 166.6 mls/hr IVPB Q12H [facility]; Protocol Last Admin: 01/20/19 10:32 Dose: 166.6 mls/hr Ciprofloxacin (Cipro 400mg/200ml Dsw) 400 mg in 200 mls @ 133 mls/hr IVPB Q12H [facility]; Protocol Lactic Acid (Lac-Hydrin 12% Lotion (225 G)) 5 gm EXT BID [facility] Last Admin: 01/20/19 10:42 Dose: 5 gm Loratadine (Claritin) 10 mg PO DAILY [facility] Last Admin: 01/20/19 10:42 Dose: 10 mg Losartan Potassium (Cozaar) 50 mg PO DAILY [facility] Last Admin: 01/20/19 10:42 Dose: 50 mg Magnesium Oxide (Mag-Ox) 800 mg PO TID [facility] Last Admin: 01/20/19 13:23 Dose: 800 mg Potassium Chloride (K-Dur 20 Meq Er Tab) 40 meq PO DAILY [facility] Last Admin: 01/20/19 10:42 Dose: 40 meq - Labs Labs: 01/20/19 07:42 01/20/19 07:42 PT 14.4 SECONDS (9.7-12.2) H 01/16/19 21:52 INR 1.3 01/16/19 21:52 APTT 36 SECONDS (21-34) H 01/16/19 21:52
[2019-01-20] MEDS: Ciprofloxacin 400mg/200ml D5W 400 MG/200 ML BAG IVPB SCH (16:46)
--- NOTE | 2019-01-20 17:50 | CP.PCM.PN ---
Subjective - Date & Time of Evaluation Date of Evaluation: 01/20/19 Time of Evaluation: 12:00 - Subjective Subjective: seen and examined this morning,patient has no complain wound care was done by podiatry resident no fever,today's k is 3.6 wound c/s reviewed,stop zosyn and start cipro,continue vanco patient denies feeling sick,hs fever spikes,denies nausea,no vomiting,no diarrhea,denies abdominal pain Objective - Vital Signs/Intake and Output Vital Signs (last 24 hours): Temp Pulse Resp BP Pulse Ox 102 F H 80 20 164/89 H 96 01/20/19 15:00 01/20/19 15:00 01/20/19 15:00 01/20/19 15:00 01/20/19 15:00 Intake and Output: 01/20/19 01/20/19 06:59 18:59 Intake Total 220 Output Total 650 Balance -650 220 - Medications Medications: Current Medications Acetaminophen (Tylenol 325mg Tab) 650 mg PO Q6 PRN PRN Reason: Fever >100.4 F Last Admin: 01/20/19 17:01 Dose: 650 mg Clotrimazole (Lotrimin 1%) 1 gm TOP DAILY [facility] Last Admin: 01/20/19 10:42 Dose: 1 gm Heparin Sodium (Porcine) (Heparin) 5,000 units SC Q8 [facility] Last Admin: 01/20/19 13:26 Dose: 5,000 units Vancomycin HCl 1,400 mg/ (Sodium Chloride) 500 mls @ 166.6 mls/hr IVPB Q12H [facility]; Protocol Last Admin: 01/20/19 10:32 Dose: 166.6 mls/hr Ciprofloxacin (Cipro 400mg/200ml Dsw) 400 mg in 200 mls @ 133 mls/hr IVPB Q12H [facility]; Protocol Last Admin: 01/20/19 16:46 Dose: 133 mls/hr Lactic Acid (Lac-Hydrin 12% Lotion (225 G)) 5 gm EXT BID [facility] Last Admin: 01/20/19 17:02 Dose: 5 gm Loratadine (Claritin) 10 mg PO DAILY [facility] Last Admin: 01/20/19 10:42 Dose: 10 mg Losartan Potassium (Cozaar) 50 mg PO DAILY [facility] Last Admin: 01/20/19 10:42 Dose: 50 mg Magnesium Oxide (Mag-Ox) 800 mg PO TID [facility] Last Admin: 01/20/19 17:01 Dose: 800 mg Potassium Chloride (K-Dur 20 Meq Er Tab) 40 meq PO DAILY [facility] Last Admin: 01/20/19 10:42 Dose: 40 meq - Labs Labs: 01/20/19 07:42 01/20/19 07:42 PT 14.4 SECONDS (9.7-12.2) H 01/16/19 21:52 INR 1.3 01/16/19 21:52 APTT 36 SECONDS (21-34) H 01/16/19 21:52 - Constitutional Appears: Non-toxic, Chronically Ill - Head Exam Head Exam: NORMAL INSPECTION - Eye Exam Eye Exam: Normal appearance - ENT Exam ENT Exam: Mucous Membranes Moist - Neck Exam Neck Exam: Full ROM - Respiratory Exam Respiratory Exam: Clear to Ausculation Bilateral, NORMAL BREATHING PATTERN - Cardiovascular Exam Cardiovascular Exam: REGULAR RHYTHM - GI/Abdominal Exam GI & Abdominal Exam: Soft, Normal Bowel Sounds - Extremities Exam Extremities Exam: absent: Normal Inspection (left leg venous ulcers/dressing on) - Back Exam Back Exam: Full ROM - Neurological Exam Neurological Exam: Awake, Oriented x3 - Psychiatric Exam Psychiatric exam: Normal Mood - Skin Skin Exam: Dry, Intact Assessment and Plan - Assessment and Plan (Free Text) Plan: 1. fever ,r/o sepsis Lower Extremity cellulitis and venous stasis ulcer CT LE: Diffuse lower extremities edema and subcutaneous stranding associated with slight skin thickening. The differential consideration includes CHF versus venous or arterial disease.No evidence of abscess formation or subcutaneous emphysema.No CT evidence of osteomyelitis. Bcx - negative for 48 hours wound culture - positive for klebsiella oxytoca, B hemolytic strep B - sensitive to vanco and cipro has better MAGAN PAtient febrile this afternoon,repeat blood culture no growth last 24hrs Cxray - mild congestion ID consult, Dr. Guajardo ,resident spoke to Dr Escamilla to [place] to cipro 2.Bilateral LE edema ,LV out flow obstruction f/u lower extremity duplex, - no evidence of DVT bilaterally Echo: EF WNL, AV opens with gradient, suggesting LV outflow obstruction chext x ray with congestion. get cardiology consult no evidence of renal dysfunction BUN/Cr: 8/1.0 BP stable and WNL 3.Hypokalemia today's k 3.6 we will follow nephrology supplement as needed 4.LE desquamation/dryness /poor hygiene - Lac-hydrin lotion 5gm BID - Clomitrazole cream Qdaily 5.Abdominal discomfort/distention Patient states that his abdomen is same for a long time on examination not tender - abdominal US shows normal GB,fatty liver - continue to monitor PPX DVT: heparin GI: not indicated
--- NOTE | 2019-01-20 23:54 | CP.PCM.PN ---
Subjective - Date & Time of Evaluation Date of Evaluation: 01/20/19 Time of Evaluation: 12:00 - Subjective Subjective: 58 yo M w/ no reported pmh, admitted with leg swelling/cellulitis, found to be hypertensive and hypokalemic; Patient with low grade temp; otherwise feels well; no sob; Objective - Vital Signs/Intake and Output Vital Signs (last 24 hours): Temp Pulse Resp BP Pulse Ox 98.6 F 84 20 160/71 H 96 01/20/19 23:46 01/20/19 23:46 01/20/19 23:46 01/20/19 23:46 01/20/19 23:46 Intake and Output: 01/20/19 01/21/19 18:59 06:59 Intake Total 220 Output Total 450 Balance 220 -450 - Medications Medications: Current Medications Acetaminophen (Tylenol 325mg Tab) 650 mg PO Q6 PRN PRN Reason: Fever >100.4 F Last Admin: 01/20/19 23:01 Dose: 650 mg Clotrimazole (Lotrimin 1%) 1 gm TOP DAILY [facility] Last Admin: 01/20/19 10:42 Dose: 1 gm Heparin Sodium (Porcine) (Heparin) 5,000 units SC Q8 [facility] Last Admin: 01/20/19 21:42 Dose: 5,000 units Vancomycin HCl 1,400 mg/ (Sodium Chloride) 500 mls @ 166.6 mls/hr IVPB Q12H [facility]; Protocol Last Admin: 01/20/19 21:42 Dose: 166.6 mls/hr Ciprofloxacin (Cipro 400mg/200ml Dsw) 400 mg in 200 mls @ 133 mls/hr IVPB Q12H [facility]; Protocol Last Admin: 01/20/19 16:46 Dose: 133 mls/hr Lactic Acid (Lac-Hydrin 12% Lotion (225 G)) 5 gm EXT BID [facility] Last Admin: 01/20/19 17:02 Dose: 5 gm Loratadine (Claritin) 10 mg PO DAILY [facility] Last Admin: 01/20/19 10:42 Dose: 10 mg Losartan Potassium (Cozaar) 50 mg PO DAILY [facility] Last Admin: 01/20/19 10:42 Dose: 50 mg Magnesium Oxide (Mag-Ox) 800 mg PO TID [facility] Last Admin: 01/20/19 17:01 Dose: 800 mg Potassium Chloride (K-Dur 20 Meq Er Tab) 40 meq PO DAILY [facility] Last Admin: 01/20/19 10:42 Dose: 40 meq - Labs Labs: 01/20/19 07:42 01/20/19 07:42 PT 14.4 SECONDS (9.7-12.2) H 01/16/19 21:52 INR 1.3 01/16/19 21:52 APTT 36 SECONDS (21-34) H 01/16/19 21:52 - Constitutional Appears: Non-toxic, No Acute Distress - Eye Exam Eye Exam: Normal appearance - Respiratory Exam Respiratory Exam: Clear to Ausculation Bilateral. absent: Respiratory Distress - Cardiovascular Exam Cardiovascular Exam: RRR, +S1, +S2 - GI/Abdominal Exam GI & Abdominal Exam: Soft. absent: Distended, Tenderness - Extremities Exam Additional comments: 2+ b/l lower leg edema; - Neurological Exam Neurological Exam: Alert, Awake - Psychiatric Exam Psychiatric exam: Normal Mood. absent: Agitated - Skin Skin Exam: Warm. absent: Cyanosis Assessment and Plan (1) Hypokalemia Assessment & Plan: No renal wasting noted per random urine sample; agree with supplementing PO KCl 40 meq daily; adding losartan will help also; Status: Acute (2) HTN (hypertension) Assessment & Plan: BP persistently elevated; starting losartan 50 mg dailly; Status: Acute
[2019-01-21] MEDS: Ciprofloxacin 400mg/200ml D5W 400 MG/200 ML BAG IVPB SCH ×2 (04:58→15:45)
--- NOTE | 2019-01-21 08:07 | CP.PCM.PN ---
<Dada Pugh - Last Filed: 01/21/19 17:04> Subjective - Date & Time of Evaluation Date of Evaluation: 01/21/19 Time of Evaluation: 08:07 - Subjective Subjective: HOSPITALIST SERVICE Pt s/e at bedside, denies cp sob fc nv, reports improvement of pain Objective - Vital Signs/Intake and Output Vital Signs (last 24 hours): Temp Pulse Resp BP Pulse Ox 99.4 F 86 14 151/78 H 95 01/21/19 05:15 01/21/19 05:15 01/21/19 05:15 01/21/19 05:15 01/21/19 05:15 Intake and Output: 01/21/19 01/21/19 06:59 18:59 Intake Total 370 Output Total 2049 Balance -1679 - Medications Medications: Current Medications Acetaminophen (Tylenol 325mg Tab) 650 mg PO Q6 PRN PRN Reason: Fever >100.4 F Last Admin: 01/20/19 23:01 Dose: 650 mg Clotrimazole (Lotrimin 1%) 1 gm TOP DAILY [facility] Last Admin: 01/20/19 10:42 Dose: 1 gm Heparin Sodium (Porcine) (Heparin) 5,000 units SC Q8 [facility] Last Admin: 01/21/19 05:08 Dose: 5,000 units Vancomycin HCl 1,400 mg/ (Sodium Chloride) 500 mls @ 166.6 mls/hr IVPB Q12H [facility]; Protocol Last Admin: 01/20/19 21:42 Dose: 166.6 mls/hr Ciprofloxacin (Cipro 400mg/200ml Dsw) 400 mg in 200 mls @ 133 mls/hr IVPB Q12H [facility]; Protocol Last Admin: 01/21/19 04:58 Dose: 133 mls/hr Lactic Acid (Lac-Hydrin 12% Lotion (225 G)) 5 gm EXT BID [facility] Last Admin: 01/20/19 17:02 Dose: 5 gm Loratadine (Claritin) 10 mg PO DAILY [facility] Last Admin: 01/20/19 10:42 Dose: 10 mg Losartan Potassium (Cozaar) 50 mg PO DAILY [facility] Last Admin: 01/20/19 10:42 Dose: 50 mg Magnesium Oxide (Mag-Ox) 800 mg PO TID [facility] Last Admin: 01/20/19 17:01 Dose: 800 mg Potassium Chloride (K-Dur 20 Meq Er Tab) 40 meq PO DAILY [facility] Last Admin: 01/20/19 10:42 Dose: 40 meq - Labs Labs: 01/20/19 07:42 01/20/19 07:42 PT 14.4 SECONDS (9.7-12.2) H 01/16/19 21:52 INR 1.3 01/16/19 21:52 APTT 36 SECONDS (21-34) H 01/16/19 21:52 - Additional Findings Additional findings: - Constitutional Appears: Non-toxic, Chronically Ill - Head Exam Head Exam: NORMAL INSPECTION - Eye Exam Eye Exam: Normal appearance - ENT Exam ENT Exam: Mucous Membranes Moist - Neck Exam Neck Exam: Full ROM - Respiratory Exam Respiratory Exam: Clear to Ausculation Bilateral, NORMAL BREATHING PATTERN - Cardiovascular Exam Cardiovascular Exam: REGULAR RHYTHM - GI/Abdominal Exam GI & Abdominal Exam: Soft, Normal Bowel Sounds - Extremities Exam Extremities Exam: absent: Normal Inspection (left leg venous ulcers/dressing on) - Back Exam Back Exam: Full ROM - Neurological Exam Neurological Exam: Awake, Oriented x3 - Psychiatric Exam Psychiatric exam: Normal Mood - Skin Skin Exam: Dry, Intact Assessment and Plan - Assessment and Plan (Free Text) Assessment: 1. fever ,r/o sepsis Lower Extremity cellulitis and venous stasis ulcer CT LE: Diffuse lower extremities edema and subcutaneous stranding associated with slight skin thickening. The differential consideration includes CHF versus venous or arterial disease.No evidence of abscess formation or subcutaneous emphysema.No CT evidence of osteomyelitis. Bcx - negative for 48 hours wound culture - positive for klebsiella oxytoca, B hemolytic strep B - sensitive to vanco and cipro has better MAGAN PAtient febrile this afternoon,repeat blood culture no growth last 24hrs Cxray - mild congestion ID consult, Dr Escamilla recs to switch to cipro 2.Bilateral LE edema ,LV out flow obstruction f/u lower extremity duplex, - no evidence of DVT bilaterally Echo: EF WNL, AV opens with gradient, suggesting LV outflow obstruction chext x ray with congestion no evidence of renal dysfunction BUN/Cr: 8/1.0 BP stable and WNL f/u Dr Guerra Cardio Consult recs repeat echo 3.Hypokalemia resolved today's k 3.8 we will follow nephrology supplement as needed 4.LE desquamation/dryness /poor hygiene - Lac-hydrin lotion 5gm BID - Clomitrazole cream Qdaily 5.Abdominal discomfort/distention Patient states that his abdomen is same for a long time on examination not tender - abdominal US shows normal GB,fatty liver - continue to monitor PPX DVT: heparin GI: not indicated Dispo: pending afebrile night, dc home on PO abx <Michael Arteaga - Last Filed: 01/24/19 16:08> Objective - Vital Signs/Intake and Output Vital Signs (last 24 hours): Temp Pulse Resp BP Pulse Ox 98.8 F 80 18 152/84 H 97 01/24/19 07:30 01/24/19 09:31 01/24/19 07:30 01/24/19 09:31 01/24/19 07:30 Intake and Output: 01/24/19 01/24/19 06:59 18:59 Intake Total 2100 Output Total 3600 Balance -1500 - Medications Medications: Current Medications Acetaminophen (Tylenol 325mg Tab) 650 mg PO Q6 PRN PRN Reason: Fever >100.4 F Last Admin: 01/20/19 23:01 Dose: 650 mg Amlodipine Besylate (Norvasc) 5 mg PO DAILY [facility] Last Admin: 01/24/19 09:32 Dose: 5 mg Clotrimazole (Lotrimin 1%) 1 gm TOP DAILY [facility] Last Admin: 01/24/19 09:40 Dose: 1 gm Heparin Sodium (Porcine) (Heparin) 5,000 units SC Q8 [facility] Last Admin: 01/24/19 13:40 Dose: Not Given Ciprofloxacin (Cipro 400mg/200ml Dsw) 400 mg in 200 mls @ 133 mls/hr IVPB Q12H [facility]; Protocol Last Admin: 01/24/19 04:32 Dose: 133 mls/hr Vancomycin HCl 1,400 mg/ (Sodium Chloride) 500 mls @ 300 mls/hr IVPB Q12H [facility]; Protocol Stop: 01/24/19 21:01 Last Admin: 01/24/19 09:32 Dose: 300 mls/hr Lactic Acid (Lac-Hydrin 12% Lotion (225 G)) 5 gm EXT BID [facility] Last Admin: 01/24/19 09:40 Dose: 1 applic Loratadine (Claritin) 10 mg PO DAILY [facility] Last Admin: 01/24/19 09:33 Dose: 10 mg Losartan Potassium (Cozaar) 100 mg PO DAILY [facility] Last Admin: 01/24/19 09:33 Dose: 100 mg Saccharomyces Boulardii (Florastor) 250 mg PO TID [facility] Last Admin: 01/24/19 13:40 Dose: Not Given Simethicone (Mylicon Chew Tab) 80 mg PO Q6H PRN PRN Reason: GI distress - Labs Labs: 01/24/19 07:35 01/24/19 07:35 PT 14.4 SECONDS (9.7-12.2) H 01/16/19 21:52 INR 1.3 01/16/19 21:52 APTT 36 SECONDS (21-34) H 01/16/19 21:52 Attending/Attestation - Attestation I have personally seen and examined this patient.: Yes I have fully participated in the care of the patient.: Yes I have reviewed all pertinent clinical information, including history, physical exam and plan: Yes Notes (Text): seen and examined. 1.Fever 2.cellulitis 3.R/O LV out flow obstruction continue antibiotics,follow cultures
[2019-01-21 08:13] LABS: BASO # 0.1 K/uL (0.0-0.2); BASO % 1.2 % (0.0-2.0); EOS # 0.3 K/uL (0.0-0.7); EOS % 3.3 % (0.0-4.0); HEMOGLOBIN 10.3 g/dL (12.0-18.0); LYMPH # 1.4 K/uL (1.0-4.3); LYMPH % 17.1 % (20.0-40.0); MEAN CELL VOLUME 84.3 fL (80.0-94.0); MEAN CORPUSCULAR HEMOGLOBIN 27.8 pg (27.0-31.0); MEAN PLATELET VOLUME 8.7 fL (7.2-11.7); MONO # 0.6 K/uL (0.0-0.8); MONO % 7.8 % (0.0-10.0); NEUT # 5.6 K/uL (1.8-7.0); NEUT % 70.6 % (50.0-75.0); RBC 3.72 Mil/uL (4.40-5.90); RED CELL DISTRIBUTION WIDTH 16.9 % (11.5-14.5); WHITE BLOOD COUNT 7.9 K/uL (4.8-10.8)
[2019-01-21 08:25] LABS: ALB/GLOB RATIO 0.8 (1.0-2.1); ALT/SGPT 39 U/L (21-72); AST/SGOT 49 U/L (17-59); BLOOD UREA NITROGEN 10 mg/dL (9-20); CALCIUM 8.3 mg/dl (8.6-10.4); GFR NON-AFRICAN AMERICAN > 60
[2019-01-21] MEDS: Potassium Chloride 20 mEq ER Tab PO SCH (10:22)
[2019-01-21] MEDS: Magnesium Oxide 400 mg Tab UD PO SCH (10:23)
[2019-01-21] MEDS: Ammonium Lactate 12% Lotion (225 g) EXT SCH ×2 (10:26→17:40)
[2019-01-21] MEDS: Clotrimazole 1% Cream 15 GM TUBE TOP SCH (10:26)
[2019-01-21 11:51] LABS: HEPATITIS B SURFACE AG Negative (NEGATIVE)
[2019-01-21 11:56] LABS: HEPATITIS B CORE AB NEGATIVE (NEGATIVE)
[2019-01-21] MEDS: Saccharomyces Boulardi 250 mg Cap PO SCH (17:39)
[2019-01-22] MEDS: Ciprofloxacin 400mg/200ml D5W 400 MG/200 ML BAG IVPB SCH ×2 (05:00→15:48)
[2019-01-22 07:24] LABS: BASO # 0.1 K/uL (0.0-0.2); BASO % 0.9 % (0.0-2.0); EOS # 0.2 K/uL (0.0-0.7); EOS % 2.7 % (0.0-4.0); HEMOGLOBIN 10.6 g/dL (12.0-18.0); LYMPH # 1.4 K/uL (1.0-4.3); LYMPH % 18.6 % (20.0-40.0); MEAN CELL VOLUME 84.1 fL (80.0-94.0); MEAN CORPUSCULAR HEMOGLOBIN 27.6 pg (27.0-31.0); MEAN CORPUSCULAR HGB CONC 32.8 g/dL (33.0-37.0); MEAN PLATELET VOLUME 8.8 fL (7.2-11.7); MONO # 0.6 K/uL (0.0-0.8); NEUT # 5.4 K/uL (1.8-7.0); NEUT % 69.8 % (50.0-75.0); RBC 3.83 Mil/uL (4.40-5.90); RED CELL DISTRIBUTION WIDTH 17.4 % (11.5-14.5); WHITE BLOOD COUNT 7.7 K/uL (4.8-10.8)
--- NOTE | 2019-01-22 07:41 | CP.PCM.PN ---
<Kendall Dahl - Last Filed: 01/22/19 14:30> Subjective - Date & Time of Evaluation Date of Evaluation: 01/22/19 Time of Evaluation: 08:00 - Subjective Subjective: PGY-[address] Ashutosh Burt service Patient is seen and examined at bedside. Patient reports no acute events overnight, states pain in lower extremity is better but states feeling tired and discomfort in leg when walking around room. Patient admits to having one episode of a "sludge-like", soft bowel movements last night, no blood noted. Denies fever, chills, chest pain, sob, headaches, abdominal pain, nausea, vomiting, diarrhea, constipation or urinary symptoms. Patient is afebrile this morning. Objective - Vital Signs/Intake and Output Vital Signs (last 24 hours): Temp Pulse Resp BP Pulse Ox 99.1 F 83 20 153/83 H 100 01/22/19 03:00 01/21/19 23:47 01/21/19 23:47 01/21/19 23:47 01/21/19 23:47 Intake and Output: 01/22/19 01/22/19 06:59 18:59 Intake Total 1050 Output Total 2200 Balance -1150 - Medications Medications: Current Medications Acetaminophen (Tylenol 325mg Tab) 650 mg PO Q6 PRN PRN Reason: Fever >100.4 F Last Admin: 01/20/19 23:01 Dose: 650 mg Clotrimazole (Lotrimin 1%) 1 gm TOP DAILY [facility] Last Admin: 01/21/19 10:26 Dose: 1 gm Heparin Sodium (Porcine) (Heparin) 5,000 units SC Q8 [facility] Last Admin: 01/22/19 05:12 Dose: 5,000 units Ciprofloxacin (Cipro 400mg/200ml Dsw) 400 mg in 200 mls @ 133 mls/hr IVPB Q12H [facility]; Protocol Last Admin: 01/22/19 05:00 Dose: 133 mls/hr Vancomycin HCl 1,400 mg/ (Sodium Chloride) 500 mls @ 300 mls/hr IVPB Q12H [facility]; Protocol Stop: 01/24/19 21:01 Last Admin: 01/21/19 21:10 Dose: 300 mls/hr Lactic Acid (Lac-Hydrin 12% Lotion (225 G)) 5 gm EXT BID [facility] Last Admin: 01/21/19 17:40 Dose: 1 applic Loratadine (Claritin) 10 mg PO DAILY [facility] Last Admin: 01/21/19 10:22 Dose: 10 mg Losartan Potassium (Cozaar) 50 mg PO DAILY [facility] Last Admin: 01/21/19 10:23 Dose: 50 mg Potassium Chloride (K-Dur 20 Meq Er Tab) 40 meq PO DAILY [facility] Last Admin: 01/21/19 10:22 Dose: 40 meq Saccharomyces Boulardii (Florastor) 250 mg PO TID [facility] Last Admin: 01/21/19 17:39 Dose: 250 mg - Labs Labs: 01/22/19 07:09 01/21/19 07:59 PT 14.4 SECONDS (9.7-12.2) H 01/16/19 21:52 INR 1.3 01/16/19 21:52 APTT 36 SECONDS (21-34) H 01/16/19 21:52 - Constitutional Appears: Non-toxic, No Acute Distress - Head Exam Head Exam: ATRAUMATIC, NORMAL INSPECTION, NORMOCEPHALIC - Eye Exam Eye Exam: EOMI, Normal appearance - ENT Exam ENT Exam: Mucous Membranes Moist, Normal Exam - Neck Exam Neck Exam: Full ROM, Normal Inspection - Respiratory Exam Respiratory Exam: Clear to Ausculation Bilateral, NORMAL BREATHING PATTERN. absent: Rales, Rhonchi, Wheezes - Cardiovascular Exam Cardiovascular Exam: REGULAR RHYTHM, +S1, +S2 - GI/Abdominal Exam GI & Abdominal Exam: Soft, Normal Bowel Sounds. absent: Rigid, Tenderness Additional comments: obese abdomen - Extremities Exam Extremities Exam: Full ROM, Pedal Edema Additional comments: left leg dressing, clean, dry and intact, no blood or pus noted nontender to palpation LE b/l improved squamation in LE not warm to touch 2+ pitting edema LE b/l - Back Exam Back Exam: NORMAL INSPECTION - Neurological Exam Neurological Exam: Alert, Awake, Oriented x3 - Psychiatric Exam Psychiatric exam: Normal Affect, Normal Mood - Skin Skin Exam: Dry, Intact, Normal Color, Warm Assessment and Plan - Assessment and Plan (Free Text) Plan: fever ,r/o sepsis Lower Extremity cellulitis and venous stasis ulcer CT LE: Diffuse lower extremities edema and subcutaneous stranding associated with slight skin thickening. The differential consideration includes CHF versus venous or arterial disease.No evidence of abscess formation or subcutaneous emphysema.No CT evidence of osteomyelitis. repeat Bcx - negative for 3 days wound culture - positive for klebsiella oxytoca, B hemolytic strep B - sensitive to vanco and cipro has better MAGAN Cipro 400 IVPB Q12H Vancomycin 1400 mg IVPB Q12H ID - Dr Guajardo - follow up recs podiatry - Dr Pichardo - continue with local wound care, no plan for sx intervention at this time. Bilateral LE edema ,LV out flow obstruction f/u lower extremity duplex, - no evidence of DVT bilaterally Echo: EF WNL, AV opens with gradient, suggesting LV outflow obstruction chext x ray with congestion no evidence of renal dysfunction BUN/Cr WNL f/u Dr Guerra Cardio Consult recs Hypokalemia resolved today's k 4.2 -continue to monitor we will follow nephrology supplement as needed HTN - this am - Losartan 50mg PO one time - Losartan 100mg PO QD - Nephro - Dr Campos - follow up recs LE desquamation/dryness /poor hygiene - Lac-hydrin lotion 5gm BID - Clomitrazole cream Qdaily Abdominal discomfort/distention Patient states that his abdomen is same for a long time on examination not tender - abdominal US shows normal GB,fatty liver - continue to monitor Diarrhea - c. diff toxin negative - continue to monitor PPX DVT: heparin Q8H GI: not indicated Plan discussed with Dr Carmel Dahl, PGY -1 <Ashutosh Butr - Last Filed: 01/22/19 14:41> Objective - Vital Signs/Intake and Output Vital Signs (last 24 hours): Temp Pulse Resp BP Pulse Ox 98.9 F 81 20 161/89 H 97 01/22/19 07:12 01/22/19 09:06 01/22/19 07:12 01/22/19 09:06 01/22/19 07:12 Intake and Output: 01/22/19 01/22/19 06:59 18:59 Intake Total 1050 Output Total 2200 Balance -1150 - Medications Medications: Current Medications Acetaminophen (Tylenol 325mg Tab) 650 mg PO Q6 PRN PRN Reason: Fever >100.4 F Last Admin: 01/20/19 23:01 Dose: 650 mg Clotrimazole (Lotrimin 1%) 1 gm TOP DAILY [facility] Last Admin: 01/22/19 09:08 Dose: 1 gm Heparin Sodium (Porcine) (Heparin) 5,000 units SC Q8 [facility] Last Admin: 01/22/19 13:12 Dose: 5,000 units Ciprofloxacin (Cipro 400mg/200ml Dsw) 400 mg in 200 mls @ 133 mls/hr IVPB Q12H [facility]; Protocol Last Admin: 01/22/19 05:00 Dose: 133 mls/hr Vancomycin HCl 1,400 mg/ (Sodium Chloride) 500 mls @ 300 mls/hr IVPB Q12H [facility]; Protocol Stop: 01/24/19 21:01 Last Admin: 01/22/19 09:14 Dose: 300 mls/hr Lactic Acid (Lac-Hydrin 12% Lotion (225 G)) 5 gm EXT BID [facility] Last Admin: 01/22/19 09:08 Dose: 1 applic Loratadine (Claritin) 10 mg PO DAILY [facility] Last Admin: 01/22/19 09:06 Dose: 10 mg Losartan Potassium (Cozaar) 100 mg PO DAILY [facility] Last Admin: 01/22/19 11:00 Dose: 100 mg Potassium Chloride (K-Dur 20 Meq Er Tab) 40 meq PO DAILY [facility] Last Admin: 01/22/19 09:07 Dose: 40 meq Saccharomyces Boulardii (Florastor) 250 mg PO TID [facility] Last Admin: 01/22/19 13:12 Dose: 250 mg - Labs Labs: 01/22/19 07:09 01/22/19 07:09 PT 14.4 SECONDS (9.7-12.2) H 01/16/19 21:52 INR 1.3 01/16/19 21:52 APTT 36 SECONDS (21-34) H 01/16/19 21:52 Attending/Attestation - Attestation I have personally seen and examined this patient.: Yes I have fully participated in the care of the patient.: Yes I have reviewed all pertinent clinical information, including history, physical exam and plan: Yes Notes (Text): 01/22/19 14:35 Medical attending: Patient was seen and examined by me. Reviewed the above note by the resident and agree with the above note by the resident. The patient was seen and examined by me as well. Patient's abx has been changed over to Cipro He reports that he feels signifigantly better I did not unwrap the foot since it was just changed before we came in Ashutosh Brut
[2019-01-22 08:20] LABS: ALB/GLOB RATIO 0.9 (1.0-2.1); ALBUMIN 3.1 g/dL (3.5-5.0); ALT/SGPT 48 U/L (21-72); AST/SGOT 47 U/L (17-59); BLOOD UREA NITROGEN 12 mg/dL (9-20); CALCIUM 8.6 mg/dl (8.6-10.4); GFR NON-AFRICAN AMERICAN > 60
[2019-01-22] MEDS: Potassium Chloride 20 mEq ER Tab PO SCH (09:07)
[2019-01-22] MEDS: Saccharomyces Boulardi 250 mg Cap PO SCH ×3 (09:07→17:29)
[2019-01-22] MEDS: Ammonium Lactate 12% Lotion (225 g) EXT SCH ×2 (09:08→17:29)
[2019-01-22] MEDS: Clotrimazole 1% Cream 15 GM TUBE TOP SCH (09:08)
--- NOTE | 2019-01-22 18:36 | CP.PCM.PN ---
Subjective - Date & Time of Evaluation Date of Evaluation: 01/22/19 Time of Evaluation: 13:00 - Subjective Subjective: 58 yo M w/ no reported pmh, admitted with leg swelling/cellulitis, found to be hypertensive and hypokalemic; Reports feeling well; no dyspnea; urinating well; feels leg swelling has improved; Objective - Vital Signs/Intake and Output Vital Signs (last 24 hours): Temp Pulse Resp BP Pulse Ox 98.7 F 86 20 180/92 H 99 01/22/19 15:00 01/22/19 15:00 01/22/19 15:00 01/22/19 15:00 01/22/19 15:00 Intake and Output: 01/22/19 01/22/19 06:59 18:59 Intake Total 1050 Output Total 2200 Balance -1150 - Medications Medications: Current Medications Acetaminophen (Tylenol 325mg Tab) 650 mg PO Q6 PRN PRN Reason: Fever >100.4 F Last Admin: 01/20/19 23:01 Dose: 650 mg Clotrimazole (Lotrimin 1%) 1 gm TOP DAILY [facility] Last Admin: 01/22/19 09:08 Dose: 1 gm Heparin Sodium (Porcine) (Heparin) 5,000 units SC Q8 [facility] Last Admin: 01/22/19 13:12 Dose: 5,000 units Ciprofloxacin (Cipro 400mg/200ml Dsw) 400 mg in 200 mls @ 133 mls/hr IVPB Q12H [facility]; Protocol Last Admin: 01/22/19 15:48 Dose: 133 mls/hr Vancomycin HCl 1,400 mg/ (Sodium Chloride) 500 mls @ 300 mls/hr IVPB Q12H [facility]; Protocol Stop: 01/24/19 21:01 Last Admin: 01/22/19 09:14 Dose: 300 mls/hr Lactic Acid (Lac-Hydrin 12% Lotion (225 G)) 5 gm EXT BID [facility] Last Admin: 01/22/19 17:29 Dose: 1 applic Loratadine (Claritin) 10 mg PO DAILY [facility] Last Admin: 01/22/19 09:06 Dose: 10 mg Losartan Potassium (Cozaar) 100 mg PO DAILY [facility] Last Admin: 01/22/19 11:00 Dose: 100 mg Potassium Chloride (K-Dur 20 Meq Er Tab) 40 meq PO DAILY [facility] Last Admin: 01/22/19 09:07 Dose: 40 meq Saccharomyces Naderdii (Florastor) 250 mg PO TID [facility] Last Admin: 01/22/19 17:29 Dose: 250 mg - Labs Labs: 01/22/19 07:09 01/22/19 07:09 PT 14.4 SECONDS (9.7-12.2) H 01/16/19 21:52 INR 1.3 01/16/19 21:52 APTT 36 SECONDS (21-34) H 01/16/19 21:52 - Constitutional Appears: Non-toxic, No Acute Distress - Eye Exam Eye Exam: Normal appearance - Respiratory Exam Respiratory Exam: Clear to Ausculation Bilateral. absent: Respiratory Distress - Cardiovascular Exam Cardiovascular Exam: RRR, +S1, +S2 - GI/Abdominal Exam GI & Abdominal Exam: Soft. absent: Distended, Tenderness - Extremities Exam Additional comments: Moderate b/l lower leg edema; - Neurological Exam Neurological Exam: Alert, Awake - Psychiatric Exam Psychiatric exam: Normal Mood. absent: Agitated - Skin Skin Exam: Warm. absent: Cyanosis Assessment and Plan (1) Hypokalemia Assessment & Plan: Being adequately corrected on PO KCl 40 meq daily; will hold now that losartan increased to max dose; Status: Acute (2) HTN (hypertension) Assessment & Plan: Uncontrollled, losartan being increased to 100 mg daily; will need to be on a diuretic as well (trying to avoid loop/thiazide due to hypokalemia history, aldactone will be better choice); Status: Acute
--- NOTE | 2019-01-22 21:27 | CP.PCM.PN ---
Subjective - Date & Time of Evaluation Date of Evaluation: 01/22/19 Time of Evaluation: 08:00 - Subjective Subjective: Podiatry Progress Note- Dr. Pichardo 58 y/o male with no reported past medical history seen at bedside for left leg ulcer. Patient denies acute overnight events Reports sleeping okay Denies of pain to the left leg. Reports wound to the left leg appears better and more red. Patient reports has bee walking without issues. Denies tingling, numbness or burning in the lower extremities. Denies F/C/N/V/CP/SOB Objective - Vital Signs/Intake and Output Vital Signs (last 24 hours): Temp Pulse Resp BP Pulse Ox 98.7 F 86 20 180/92 H 99 01/22/19 15:00 01/22/19 15:00 01/22/19 15:00 01/22/19 15:00 01/22/19 15:00 - Medications Medications: Current Medications Acetaminophen (Tylenol 325mg Tab) 650 mg PO Q6 PRN PRN Reason: Fever >100.4 F Last Admin: 01/20/19 23:01 Dose: 650 mg Clotrimazole (Lotrimin 1%) 1 gm TOP DAILY [facility] Last Admin: 01/22/19 09:08 Dose: 1 gm Heparin Sodium (Porcine) (Heparin) 5,000 units SC Q8 [facility] Last Admin: 01/22/19 21:13 Dose: 5,000 units Ciprofloxacin (Cipro 400mg/200ml Dsw) 400 mg in 200 mls @ 133 mls/hr IVPB Q12H [facility]; Protocol Last Admin: 01/22/19 15:48 Dose: 133 mls/hr Vancomycin HCl 1,400 mg/ (Sodium Chloride) 500 mls @ 300 mls/hr IVPB Q12H [facility]; Protocol Stop: 01/24/19 21:01 Last Admin: 01/22/19 21:13 Dose: 300 mls/hr Lactic Acid (Lac-Hydrin 12% Lotion (225 G)) 5 gm EXT BID [facility] Last Admin: 01/22/19 17:29 Dose: 1 applic Loratadine (Claritin) 10 mg PO DAILY [facility] Last Admin: 01/22/19 09:06 Dose: 10 mg Losartan Potassium (Cozaar) 100 mg PO DAILY [facility] Last Admin: 01/22/19 11:00 Dose: 100 mg Potassium Chloride (K-Dur 20 Meq Er Tab) 40 meq PO DAILY [facility] Last Admin: 01/22/19 09:07 Dose: 40 meq Saccharomyces Boulardii (Florastor) 250 mg PO TID [facility] Last Admin: 01/22/19 17:29 Dose: 250 mg - Labs Labs: 01/22/19 07:09 01/22/19 07:09 PT 14.4 SECONDS (9.7-12.2) H 01/16/19 21:52 INR 1.3 01/16/19 21:52 APTT 36 SECONDS (21-34) H 01/16/19 21:52 - Constitutional Appears: Well, Non-toxic, No Acute Distress - Extremities Exam Extremities Exam: absent: Calf Tenderness Additional comments: Lower extremity exam: Vasc: DP/PT pulses palpable 2/4. Temperature gradient is warm to cool. CFT < 3 sec to all digits. Non-pitting edema noted to B/L lower extremities distal to tibial tuberosity extending to dorsum of foot. Derm: Open ulceration noted to lateral aspect of left mid leg measuring approximatewly 7cm x 7cm x 0.1cm with additional smaller ulcerations proximal and posterior approx 2cm x 1 cm x 0.1cm and 1cm x 3cm x 0.1cm in size. All wounds exhibit 100% granular wound bases with regular wound borders. Minimal serous drainage noted from wounds on previous dressing. No active drainage or purulence, no malodor, no fluctuance or abscess formation Neuro: protective sensation grossly intact Ortho: no tenderness to palpation of left leg ulcer. No tenderness on posterior calf squeeze B/L Assessment and Plan - Assessment and Plan (Free Text) Assessment: 58 y/o male with left leg ulceration likely secondary to venous stasis- improving Plan: Patient seen and evaluated Discussed plan with Dr. Pichardo Lower extremity CT reviewed- no acute findings suggestive of underlying bone infection or abscess/fluid collection Local wound care- site cleaned with saline and dressed with betadine, ABD, DSD and GARRETT compression Venous duplex negative for DVT No plan for surgical intervention at this time Will continue to provide local wound care while in house Applied AmLactin to lower extremity bilaterally Patient may WBAT Patient may follow with Dr Pichardo upon discharge
[2019-01-23] MEDS: Ciprofloxacin 400mg/200ml D5W 400 MG/200 ML BAG IVPB SCH ×2 (03:55→16:24)
--- NOTE | 2019-01-23 07:05 | CP.PCM.PN ---
<Kendall Dahl - Last Filed: 01/23/19 13:53> Subjective - Date & Time of Evaluation Date of Evaluation: 01/23/19 Time of Evaluation: 08:00 - Subjective Subjective: PGY-[address] Ashutosh Burt service Patient is seen and examined at bedside. Patient states had headache and abdominal discomfort yesterday. Improved headache and abd pain this morning. Patient states had improved lower extremity leg, still having some pain when walking. Patient states to have some loose, sludge like stools yesterday, c. diff negative. Patient denies fever, chills, chest pain, sob, nausea, vomiting, diarrhea, constipation or urinary symptoms. Objective - Vital Signs/Intake and Output Vital Signs (last 24 hours): Temp Pulse Resp BP Pulse Ox 98.8 F 76 20 171/85 H 99 01/22/19 23:48 01/22/19 23:48 01/22/19 23:48 01/22/19 23:48 01/22/19 23:48 Intake and Output: 01/23/19 01/23/19 06:59 18:59 Intake Total 1130 Output Total 1450 Balance -320 - Medications Medications: Current Medications Acetaminophen (Tylenol 325mg Tab) 650 mg PO Q6 PRN PRN Reason: Fever >100.4 F Last Admin: 01/20/19 23:01 Dose: 650 mg Clotrimazole (Lotrimin 1%) 1 gm TOP DAILY [facility] Last Admin: 01/22/19 09:08 Dose: 1 gm Heparin Sodium (Porcine) (Heparin) 5,000 units SC Q8 [facility] Last Admin: 01/22/19 21:13 Dose: 5,000 units Ciprofloxacin (Cipro 400mg/200ml Dsw) 400 mg in 200 mls @ 133 mls/hr IVPB Q12H [facility]; Protocol Last Admin: 01/23/19 03:55 Dose: 133 mls/hr Vancomycin HCl 1,400 mg/ (Sodium Chloride) 500 mls @ 300 mls/hr IVPB Q12H [facility]; Protocol Stop: 01/24/19 21:01 Last Admin: 01/22/19 21:13 Dose: 300 mls/hr Lactic Acid (Lac-Hydrin 12% Lotion (225 G)) 5 gm EXT BID [facility] Last Admin: 01/22/19 17:29 Dose: 1 applic Loratadine (Claritin) 10 mg PO DAILY [facility] Last Admin: 01/22/19 09:06 Dose: 10 mg Losartan Potassium (Cozaar) 100 mg PO DAILY [facility] Last Admin: 01/22/19 11:00 Dose: 100 mg Potassium Chloride (K-Dur 20 Meq Er Tab) 40 meq PO DAILY [facility] Last Admin: 01/22/19 09:07 Dose: 40 meq Saccharomyces Boulardii (Florastor) 250 mg PO TID [facility] Last Admin: 01/22/19 17:29 Dose: 250 mg - Labs Labs: 01/22/19 07:09 01/22/19 07:09 PT 14.4 SECONDS (9.7-12.2) H 01/16/19 21:52 INR 1.3 01/16/19 21:52 APTT 36 SECONDS (21-34) H 01/16/19 21:52 - Constitutional Appears: Non-toxic, No Acute Distress - Head Exam Head Exam: ATRAUMATIC, NORMOCEPHALIC - Eye Exam Eye Exam: EOMI, Normal appearance - ENT Exam ENT Exam: Mucous Membranes Moist, Normal Exam - Neck Exam Neck Exam: Full ROM - Respiratory Exam Respiratory Exam: Clear to Ausculation Bilateral, NORMAL BREATHING PATTERN. absent: Rales, Rhonchi, Wheezes - Cardiovascular Exam Cardiovascular Exam: REGULAR RHYTHM, +S1, +S2 - GI/Abdominal Exam GI & Abdominal Exam: Soft, Normal Bowel Sounds. absent: Tenderness Additional comments: obese abdomen - Extremities Exam Extremities Exam: Full ROM, Pedal Edema Additional comments: left LE wrapped in dressing/bandage, c/d/i - Neurological Exam Neurological Exam: Alert, Awake, Oriented x3 - Psychiatric Exam Psychiatric exam: Normal Affect, Normal Mood - Skin Skin Exam: Dry, Normal Color, Warm Assessment and Plan - Assessment and Plan (Free Text) Plan: fever ,r/o sepsis Lower Extremity cellulitis and venous stasis ulcer CT LE: Diffuse lower extremities edema and subcutaneous stranding associated with slight skin thickening. The differential consideration includes CHF versus venous or arterial disease.No evidence of abscess formation or subcutaneous emphysema.No CT evidence of osteomyelitis. repeat Bcx - negative for 4 days wound culture - positive for klebsiella oxytoca, B hemolytic strep B - sensitive to vanco and cipro has better MAGAN continue Cipro 400 IVPB Q12H continue Vancomycin 1400 mg IVPB Q12H ID - Dr Guajardo/ Dr Escamilla - follow up recs for continuing IV or PO abx for possible d/c podiatry - Dr Pichardo - continue with local wound care, no plan for sx intervention at this time. Bilateral LE edema ,LV out flow obstruction f/u lower extremity duplex, - no evidence of DVT bilaterally Echo: EF WNL, AV opens with gradient, suggesting LV outflow obstruction chest x ray with congestion no evidence of renal dysfunction BUN/Cr WNL f/u Dr Guerra Cardio Consult recs Hypokalemia resolved today's k 4.2 -continue to monitor supplement as needed HTN - this am 144/74 - Losartan 100mg PO QD - Norvasc 5mg QD - Nephro - Dr Campos - follow up recs - avoid loop diuretics/thiazides due to hx of hypokalemia LE desquamation/dryness /poor hygiene - Lac-hydrin lotion 5gm BID - Clomitrazole cream Qdaily Abdominal discomfort/distention Patient states that his abdomen is same for a long time on examination not tender - abdominal US shows normal GB,fatty liver - continue to monitor - Simethicone PO Q6H PRN Diarrhea - c. diff toxin negative - continue to monitor PPX DVT: heparin Q8H GI: not indicated Tylenol PO Q6H PRN Dispo: will follow up with ID on recs for d/c patient with PO abx. If stable, patient can be d/c tomorrow. Plan discussed with Dr Carmel Dahl, PGY -1 <Ashutosh Burt - Last Filed: 01/23/19 14:47> Objective - Vital Signs/Intake and Output Vital Signs (last 24 hours): Temp Pulse Resp BP Pulse Ox 99.1 F 92 H 20 144/74 97 01/23/19 08:00 01/23/19 09:08 01/23/19 08:00 01/23/19 09:08 01/23/19 08:00 Intake and Output: 01/23/19 01/23/19 06:59 18:59 Intake Total 1130 Output Total 1450 Balance -320 - Medications Medications: Current Medications Acetaminophen (Tylenol 325mg Tab) 650 mg PO Q6 PRN PRN Reason: Fever >100.4 F Last Admin: 01/20/19 23:01 Dose: 650 mg Amlodipine Besylate (Norvasc) 5 mg PO DAILY [facility] Last Admin: 01/23/19 09:09 Dose: 5 mg Clotrimazole (Lotrimin 1%) 1 gm TOP DAILY [facility] Last Admin: 01/23/19 09:13 Dose: 1 gm Heparin Sodium (Porcine) (Heparin) 5,000 units SC Q8 [facility] Last Admin: 01/23/19 13:17 Dose: 5,000 units Ciprofloxacin (Cipro 400mg/200ml Dsw) 400 mg in 200 mls @ 133 mls/hr IVPB Q12H [facility]; Protocol Last Admin: 01/23/19 03:55 Dose: 133 mls/hr Vancomycin HCl 1,400 mg/ (Sodium Chloride) 500 mls @ 300 mls/hr IVPB Q12H [facility]; Protocol Stop: 01/24/19 21:01 Last Admin: 01/23/19 08:25 Dose: 300 mls/hr Lactic Acid (Lac-Hydrin 12% Lotion (225 G)) 5 gm EXT BID [facility] Last Admin: 01/23/19 09:13 Dose: 1 applic Loratadine (Claritin) 10 mg PO DAILY [facility] Last Admin: 01/23/19 09:09 Dose: 10 mg Losartan Potassium (Cozaar) 100 mg PO DAILY [facility] Last Admin: 01/23/19 09:09 Dose: 100 mg Potassium Chloride (K-Dur 20 Meq Er Tab) 40 meq PO DAILY [facility] Last Admin: 01/22/19 09:07 Dose: 40 meq Saccharomyces Boulardii (Florastor) 250 mg PO TID [facility] Last Admin: 01/23/19 13:15 Dose: 250 mg Simethicone (Mylicon Chew Tab) 80 mg PO Q6H PRN PRN Reason: GI distress - Labs Labs: 01/23/19 07:54 01/23/19 07:54 PT 14.4 SECONDS (9.7-12.2) H 01/16/19 21:52 INR 1.3 01/16/19 21:52 APTT 36 SECONDS (21-34) H 01/16/19 21:52 Attending/Attestation - Attestation I have personally seen and examined this patient.: Yes I have fully participated in the care of the patient.: Yes I have reviewed all pertinent clinical information, including history, physical exam and plan: Yes Notes (Text): 01/23/19 14:43 Medical attending: Patient was seen and examined by me. Agree with the above note by the resident Patient reported no acute events overnight other than not being able to sleep because it was so loud. Currently podiatry is not planning on further intervention Pain is controlled The CT Imaging was negative for osteomylitis As mentioned previously the patient is on vancomycin IV as well as Cipro IV at this time Ashutosh Burt
[2019-01-23 08:05] LABS: BASO # 0.1 K/uL (0.0-0.2); EOS # 0.2 K/uL (0.0-0.7); EOS % 3.2 % (0.0-4.0); HEMOGLOBIN 10.8 g/dL (12.0-18.0); LYMPH # 1.4 K/uL (1.0-4.3); LYMPH % 19.4 % (20.0-40.0); MEAN CELL VOLUME 84.5 fL (80.0-94.0); MEAN CORPUSCULAR HEMOGLOBIN 27.7 pg (27.0-31.0); MEAN CORPUSCULAR HGB CONC 32.8 g/dL (33.0-37.0); MONO # 0.7 K/uL (0.0-0.8); MONO % 9.4 % (0.0-10.0); NEUT # 4.8 K/uL (1.8-7.0); NRBC % 0.2 % (0.0-2.0); RBC 3.89 Mil/uL (4.40-5.90); RED CELL DISTRIBUTION WIDTH 17.5 % (11.5-14.5); WHITE BLOOD COUNT 7.2 K/uL (4.8-10.8)
[2019-01-23 08:35] LABS: ALB/GLOB RATIO 0.8 (1.0-2.1); ALT/SGPT 44 U/L (21-72); AST/SGOT 45 U/L (17-59); BLOOD UREA NITROGEN 11 mg/dL (9-20); CALCIUM 8.8 mg/dl (8.6-10.4); GFR NON-AFRICAN AMERICAN > 60
[2019-01-23] MEDS: Saccharomyces Boulardi 250 mg Cap PO SCH ×3 (09:09→17:17)
[2019-01-23] MEDS: Ammonium Lactate 12% Lotion (225 g) EXT SCH ×2 (09:13→17:19)
[2019-01-23] MEDS: Clotrimazole 1% Cream 15 GM TUBE TOP SCH (09:13)
--- NOTE | 2019-01-23 12:16 | CP.PCM.CON ---
History of Present Illness - History of Present Illness History of Present Illness: examined at bedside chart reviewed 58 yo male with chronic leg ulcers seen by Dr Guajardo earlier this visit Has neg CT for bony erosions and Neg DVT cultures are growing Proteus and Group B strep Has received over 7 daysn IV rx and wound care No pus/ no gas [place] soft tissues consider updating tetanus immunization, cont PO antibiotics and wound care as out patient : options include clinda/ cipro for 7 days or PO Cefpodoxime Past Patient History - Infectious Disease Hx of Infectious Diseases: None - Past Social History Smoking Status: Never Smoked - MUSCULOSKELETAL/RHEUMATOLOGICAL Hx Falls: No - PSYCHIATRIC Hx Substance Use: No - SURGICAL HISTORY Hx Surgeries: No - ANESTHESIA Hx Anesthesia: No Meds Allergies/Adverse Reactions: Allergies Allergy/AdvReac Type Severity Reaction Status Date / Time No Known Allergies Allergy Verified 01/16/19 21:00 - Medications Medications: Current Medications Acetaminophen (Tylenol 325mg Tab) 650 mg PO Q6 PRN PRN Reason: Fever >100.4 F Last Admin: 01/20/19 23:01 Dose: 650 mg Amlodipine Besylate (Norvasc) 5 mg PO DAILY [facility] Last Admin: 01/23/19 09:09 Dose: 5 mg Clotrimazole (Lotrimin 1%) 1 gm TOP DAILY [facility] Last Admin: 01/23/19 09:13 Dose: 1 gm Heparin Sodium (Porcine) (Heparin) 5,000 units SC Q8 [facility] Last Admin: 01/22/19 21:13 Dose: 5,000 units Ciprofloxacin (Cipro 400mg/200ml Dsw) 400 mg in 200 mls @ 133 mls/hr IVPB Q12H [facility]; Protocol Last Admin: 01/23/19 03:55 Dose: 133 mls/hr Vancomycin HCl 1,400 mg/ (Sodium Chloride) 500 mls @ 300 mls/hr IVPB Q12H [facility]; Protocol Stop: 01/24/19 21:01 Last Admin: 01/23/19 08:25 Dose: 300 mls/hr Lactic Acid (Lac-Hydrin 12% Lotion (225 G)) 5 gm EXT BID [facility] Last Admin: 01/23/19 09:13 Dose: 1 applic Loratadine (Claritin) 10 mg PO DAILY [facility] Last Admin: 01/23/19 09:09 Dose: 10 mg Losartan Potassium (Cozaar) 100 mg PO DAILY [facility] Last Admin: 01/23/19 09:09 Dose: 100 mg Potassium Chloride (K-Dur 20 Meq Er Tab) 40 meq PO DAILY [facility] Last Admin: 01/22/19 09:07 Dose: 40 meq Saccharomyces Boulardii (Florastor) 250 mg PO TID [facility] Last Admin: 01/23/19 09:09 Dose: 250 mg Results - Vital Signs Recent Vital Signs: Last Vital Signs Temp 99.1 F 01/23/19 08:00 Pulse 92 H 01/23/19 09:08 Resp 20 01/23/19 08:00 BP 144/74 01/23/19 09:08 Pulse Ox 97 01/23/19 08:00 - Labs Result Diagrams: 01/23/19 07:54 01/23/19 07:54 Labs: Laboratory Results - last 24 hr 01/21/19 01/23/19 01/23/19 10:58 07:54 07:54 WBC 7.2 RBC 3.89 L Hgb 10.8 L Hct 32.9 L MCV 84.5 MCH 27.7 MCHC 32.8 L RDW 17.5 H Plt Count 374 MPV 9.0 Neut % (Auto) 67.0 Lymph % (Auto) 19.4 L [place] % (Auto) 9.4 Eos % (Auto) 3.2 Baso % (Auto) 1.0 Neut # (Auto) 4.8 Lymph # (Auto) 1.4 [place] # (Auto) 0.7 Eos # (Auto) 0.2 Baso # (Auto) 0.1 Sodium 138 Potassium 4.2 Chloride 106 Carbon Dioxide 25 Anion Gap 11 BUN 11 Creatinine 1.1 Est GFR ( Amer) > 60 Est GFR (Non-Af Amer) > 60 Random Glucose 103 Calcium 8.8 Phosphorus 4.5 Magnesium 2.1 Total Bilirubin 0.3 AST 45 ALT 44 Alkaline Phosphatase 53 Total Protein 6.7 Albumin 3.0 L Globulin 3.7 Albumin/Globulin Ratio 0.8 L Hepatitis C Antibody Non reactive Hep C Ab Signal/Cutoff 0.03
[2019-01-23] MEDS ORDERED: Simethicone 80 mg Chewtab PO PRN (13:45)
--- NOTE | 2019-01-23 15:24 | CP.PCM.PN ---
<Elgin Lazar - Last Filed: 01/23/19 16:27> Subjective - Date & Time of Evaluation Date of Evaluation: 01/23/19 Time of Evaluation: 15:23 - Subjective Subjective: Nephrology Progress Note (Dr. Campos's Service): Patient seen and assessed at bedside. No acute events noted overnight. Patient denies any complaints during this assessment. 12 point ROS reviewed and unremarkable. Objective - Vital Signs/Intake and Output Vital Signs (last 24 hours): Temp Pulse Resp BP Pulse Ox 99.1 F 92 H 20 144/74 97 01/23/19 08:00 01/23/19 09:08 01/23/19 08:00 01/23/19 09:08 01/23/19 08:00 Intake and Output: 01/23/19 01/23/19 06:59 18:59 Intake Total 1130 Output Total 1450 Balance -320 - Medications Medications: Current Medications Acetaminophen (Tylenol 325mg Tab) 650 mg PO Q6 PRN PRN Reason: Fever >100.4 F Last Admin: 01/20/19 23:01 Dose: 650 mg Amlodipine Besylate (Norvasc) 5 mg PO DAILY [facility] Last Admin: 01/23/19 09:09 Dose: 5 mg Clotrimazole (Lotrimin 1%) 1 gm TOP DAILY [facility] Last Admin: 01/23/19 09:13 Dose: 1 gm Heparin Sodium (Porcine) (Heparin) 5,000 units SC Q8 [facility] Last Admin: 01/23/19 13:17 Dose: 5,000 units Ciprofloxacin (Cipro 400mg/200ml Dsw) 400 mg in 200 mls @ 133 mls/hr IVPB Q12H [facility]; Protocol Last Admin: 01/23/19 03:55 Dose: 133 mls/hr Vancomycin HCl 1,400 mg/ (Sodium Chloride) 500 mls @ 300 mls/hr IVPB Q12H [facility]; Protocol Stop: 01/24/19 21:01 Last Admin: 01/23/19 08:25 Dose: 300 mls/hr Lactic Acid (Lac-Hydrin 12% Lotion (225 G)) 5 gm EXT BID [facility] Last Admin: 01/23/19 09:13 Dose: 1 applic Loratadine (Claritin) 10 mg PO DAILY [facility] Last Admin: 01/23/19 09:09 Dose: 10 mg Losartan Potassium (Cozaar) 100 mg PO DAILY [facility] Last Admin: 01/23/19 09:09 Dose: 100 mg Potassium Chloride (K-Dur 20 Meq Er Tab) 40 meq PO DAILY [facility] Last Admin: 01/22/19 09:07 Dose: 40 meq Saccharomyces Boulardii (Florastor) 250 mg PO TID [facility] Last Admin: 01/23/19 13:15 Dose: 250 mg Simethicone (Mylicon Chew Tab) 80 mg PO Q6H PRN PRN Reason: GI distress - Labs Labs: 01/23/19 07:54 01/23/19 07:54 PT 14.4 SECONDS (9.7-12.2) H 01/16/19 21:52 INR 1.3 01/16/19 21:52 APTT 36 SECONDS (21-34) H 01/16/19 21:52 - Constitutional Appears: Non-toxic, No Acute Distress - Head Exam Head Exam: ATRAUMATIC, NORMOCEPHALIC - Eye Exam Eye Exam: EOMI, Normal appearance, PERRL - ENT Exam ENT Exam: Mucous Membranes Moist - Neck Exam Neck Exam: Full ROM - Respiratory Exam Respiratory Exam: Clear to Ausculation Bilateral, NORMAL BREATHING PATTERN - Cardiovascular Exam Cardiovascular Exam: REGULAR RHYTHM, RRR, +S1, +S2 - GI/Abdominal Exam GI & Abdominal Exam: Soft, Normal Bowel Sounds. absent: Tenderness - Extremities Exam Extremities Exam: Pedal Edema (+1 pitting edema bilaterally) - Neurological Exam Neurological Exam: Alert, Awake, Oriented x3 - Psychiatric Exam Psychiatric exam: Normal Affect, Normal Mood - Skin Skin Exam: Dry, Warm Assessment and Plan - Assessment and Plan (Free Text) Assessment: 58 year old male with no reported significant past medical history who presented with lower extremity cellulitis. Nephrology was consulted for hypokalemia. Plan: 1. Hypokalemia -Resolved -Continue Losartan as ordered -Continue to hold PO KCl 40meq daily dose -Continue to replenish as indicated 2. Hypertension -Currently controlled -Continue Norvasc and Losartan Patient seen and case discussed with attending, Dr. Campos. Elgin Lazar PGY2 <Anirudh Campos - Last Filed: 01/24/19 08:18> Objective - Vital Signs/Intake and Output Vital Signs (last 24 hours): Temp Pulse Resp BP Pulse Ox 98.6 F 83 20 148/83 99 01/23/19 23:00 01/23/19 23:00 01/23/19 23:00 01/23/19 23:00 01/23/19 23:00 Intake and Output: 01/24/19 01/24/19 06:59 18:59 Intake Total 2100 Output Total 3600 Balance -1500 - Medications Medications: Current Medications Acetaminophen (Tylenol 325mg Tab) 650 mg PO Q6 PRN PRN Reason: Fever >100.4 F Last Admin: 01/20/19 23:01 Dose: 650 mg Amlodipine Besylate (Norvasc) 5 mg PO DAILY [facility] Last Admin: 01/23/19 09:09 Dose: 5 mg Clotrimazole (Lotrimin 1%) 1 gm TOP DAILY [facility] Last Admin: 01/23/19 09:13 Dose: 1 gm Heparin Sodium (Porcine) (Heparin) 5,000 units SC Q8 [facility] Last Admin: 01/24/19 05:21 Dose: 5,000 units Ciprofloxacin (Cipro 400mg/200ml Dsw) 400 mg in 200 mls @ 133 mls/hr IVPB Q12H [facility]; Protocol Last Admin: 01/24/19 04:32 Dose: 133 mls/hr Vancomycin HCl 1,400 mg/ (Sodium Chloride) 500 mls @ 300 mls/hr IVPB Q12H [facility]; Protocol Stop: 01/24/19 21:01 Last Admin: 01/23/19 21:13 Dose: 300 mls/hr Lactic Acid (Lac-Hydrin 12% Lotion (225 G)) 5 gm EXT BID [facility] Last Admin: 01/23/19 17:19 Dose: 1 applic Loratadine (Claritin) 10 mg PO DAILY [facility] Last Admin: 01/23/19 09:09 Dose: 10 mg Losartan Potassium (Cozaar) 100 mg PO DAILY [facility] Last Admin: 01/23/19 09:09 Dose: 100 mg Potassium Chloride (K-Dur 20 Meq Er Tab) 40 meq PO DAILY [facility] Last Admin: 01/22/19 09:07 Dose: 40 meq Saccharomyces Boulardii (Florastor) 250 mg PO TID [facility] Last Admin: 01/23/19 17:17 Dose: 250 mg Simethicone (Mylicon Chew Tab) 80 mg PO Q6H PRN PRN Reason: GI distress - Labs Labs: 03/20/19 07:35 01/24/19 07:35 PT 14.4 SECONDS (9.7-12.2) H 01/16/19 21:52 INR 1.3 01/16/19 21:52 APTT 36 SECONDS (21-34) H 01/16/19 21:52 Assessment and Plan (1) Hypokalemia Status: Acute (2) HTN (hypertension) Status: Acute Attending/Attestation - Attestation I have personally seen and examined this patient.: Yes I have fully participated in the care of the patient.: Yes I have reviewed all pertinent clinical information, including history, physical exam and plan: Yes Notes (Text): Patient seen and examined; I agree with the resident's note as above with the following additions/edits: Patient being seen initially for hypokalemia, currently being corrected with PO KCl 40 meq daily (received dose yesterday), ARB also helping; will re-assess tomorrow with today's KCl dose being held; HTN better controlled on max dose losartan; norvasc 5 mg just added today; still awaiting plasma yani/renin to look for hyperaldosteronism;
[2019-01-24] MEDS: Ciprofloxacin 400mg/200ml D5W 400 MG/200 ML BAG IVPB SCH (04:32)
[2019-01-24 07:59] LABS: BASO # 0.1 K/uL (0.0-0.2); BASO % 1.4 % (0.0-2.0); EOS # 0.3 K/uL (0.0-0.7); EOS % 4.5 % (0.0-4.0); HEMOGLOBIN 11.2 g/dL (12.0-18.0); LYMPH # 1.5 K/uL (1.0-4.3); LYMPH % 20.7 % (20.0-40.0); MEAN CELL VOLUME 84.2 fL (80.0-94.0); MEAN CORPUSCULAR HGB CONC 33.3 g/dL (33.0-37.0); MONO # 0.6 K/uL (0.0-0.8); NEUT # 4.6 K/uL (1.8-7.0); NEUT % 64.4 % (50.0-75.0); NRBC % 0.1 % (0.0-2.0); RBC 4.01 Mil/uL (4.40-5.90); RED CELL DISTRIBUTION WIDTH 17.3 % (11.5-14.5); WHITE BLOOD COUNT 7.2 K/uL (4.8-10.8)
[2019-01-24 08:14] LABS: ALB/GLOB RATIO 0.9 (1.0-2.1); ALBUMIN 3.2 g/dL (3.5-5.0); ALT/SGPT 37 U/L (21-72); AST/SGOT 36 U/L (17-59); BLOOD UREA NITROGEN 14 mg/dL (9-20); GFR NON-AFRICAN AMERICAN 56
[2019-01-24 08:23] VITALS: RESP 18; TEMP 98.8; O2SAT 97
--- NOTE | 2019-01-24 08:45 | CP.PCM.PN ---
Subjective - Date & Time of Evaluation Date of Evaluation: 01/24/19 Time of Evaluation: 08:45 - Subjective Subjective: Progress note for Dr. Campos Patient was seen and examined at bedside in no acute distress. He has no complaints today and feels well. He denies chest pain, palpitations, dyspnea, nausea, vomiting, abdominal pain, fevers, headaches, dysuria, diarrhea, and constipation. Objective - Vital Signs/Intake and Output Vital Signs (last 24 hours): Temp Pulse Resp BP Pulse Ox 98.8 F 82 18 133/82 97 01/24/19 07:30 01/24/19 07:30 01/24/19 07:30 01/24/19 07:30 01/24/19 07:30 Intake and Output: 01/24/19 01/24/19 06:59 18:59 Intake Total 2100 Output Total 3600 Balance -1500 - Medications Medications: Current Medications Acetaminophen (Tylenol 325mg Tab) 650 mg PO Q6 PRN PRN Reason: Fever >100.4 F Last Admin: 01/20/19 23:01 Dose: 650 mg Amlodipine Besylate (Norvasc) 5 mg PO DAILY [facility] Last Admin: 01/23/19 09:09 Dose: 5 mg Clotrimazole (Lotrimin 1%) 1 gm TOP DAILY [facility] Last Admin: 01/23/19 09:13 Dose: 1 gm Heparin Sodium (Porcine) (Heparin) 5,000 units SC Q8 [facility] Last Admin: 01/24/19 05:21 Dose: 5,000 units Ciprofloxacin (Cipro 400mg/200ml Dsw) 400 mg in 200 mls @ 133 mls/hr IVPB Q12H [facility]; Protocol Last Admin: 01/24/19 04:32 Dose: 133 mls/hr Vancomycin HCl 1,400 mg/ (Sodium Chloride) 500 mls @ 300 mls/hr IVPB Q12H [facility]; Protocol Stop: 01/24/19 21:01 Last Admin: 01/23/19 21:13 Dose: 300 mls/hr Lactic Acid (Lac-Hydrin 12% Lotion (225 G)) 5 gm EXT BID [facility] Last Admin: 01/23/19 17:19 Dose: 1 applic Loratadine (Claritin) 10 mg PO DAILY [facility] Last Admin: 01/23/19 09:09 Dose: 10 mg Losartan Potassium (Cozaar) 100 mg PO DAILY [facility] Last Admin: 01/23/19 09:09 Dose: 100 mg Potassium Chloride (K-Dur 20 Meq Er Tab) 40 meq PO DAILY [facility] Last Admin: 01/22/19 09:07 Dose: 40 meq Saccharomyces Boulardii (Florastor) 250 mg PO TID [facility] Last Admin: 01/23/19 17:17 Dose: 250 mg Simethicone (Mylicon Chew Tab) 80 mg PO Q6H PRN PRN Reason: GI distress - Labs Labs: 01/24/19 07:35 01/24/19 07:35 PT 14.4 SECONDS (9.7-12.2) H 01/16/19 21:52 INR 1.3 01/16/19 21:52 APTT 36 SECONDS (21-34) H 01/16/19 21:52 - Additional Findings Additional findings: - Constitutional Appears: No Acute Distress - Head Exam Head Exam: NORMAL INSPECTION - Eye Exam Eye Exam: EOMI, Normal appearance - ENT Exam ENT Exam: Mucous Membranes Moist - Respiratory Exam Respiratory Exam: Clear to Auscultation Bilateral, NORMAL BREATHING PATTERN. absent: Rales, Rhonchi, Wheezes, Respiratory Distress - Cardiovascular Exam Cardiovascular Exam: REGULAR RHYTHM, +S1, +S2 - GI/Abdominal Exam GI & Abdominal Exam: Distended, Normal Bowel Sounds. absent: Guarding, Mass, Tenderness - Extremities Exam Extremities exam: Positive for: pedal edema (bilateral (L>R) edema, improving). Negative for: normal inspection, tenderness, pedal pulses present (diminished due to edema b/l) Additional comments: Issa in place, dry, clean, and intact - Neurological Exam Neurological exam: Alert, Oriented x3 - Psychiatric Exam Psychiatric exam: Normal Affect, Normal Mood - Skin Skin Exam: Dry, Warm Assessment and Plan - Assessment and Plan (Free Text) Plan: 58 year old male with no past medical history who presented to the hospital with complaints of bilateral leg swelling and cellulitis. Nephrology was consulted for hypokalemia. Hypokalemia - Resolved - Continue Losartan 100mg PO daily - Held KCL 40meq PO daily - Will continue to follow AM labs Hypertension - Currently stable - Continue Norvasc 5mg PO daily and Losartan 100mg PO daily Case discussed with Dr. Andres Huang, PGY2
--- NOTE | 2019-01-24 09:26 | CP.PCM.DIS ---
<Dada Pugh - Last Filed: 01/24/19 17:54> Provider - Provider Date of Admission: 01/16/19 23:54 Attending physician: Munira Wills DO Consults: 01/16/19 23:57 Podiatry Consult Routine Comment: pressure ulcers Consulting Provider: Lois Pichardo Consulting Physician: Lois Pichardo Reason for Consult: presure ulcers 01/17/19 13:26 Infectious Disease Consult Routine Comment: Consulting Provider: Darrick Guajardo Consulting Physician: Darrick Guajardo Reason for Consult: LE cellulitis/edema 01/17/19 14:20 Nursing Referral for Wound Care Routine Comment: cellulitis and non healing left leg ulcer Physician Instructions: Reason For Exam: non-healing ulcer left lower leg/ b/l leg cellulit 01/19/19 15:12 Nephrology Consult Routine Comment: Consulting Provider: Anirudh Campos Consulting Physician: Anirudh Campos Reason for Consult: hypokalemia 01/21/19 08:11 Cardiology Consult Routine Comment: Consulting Provider: Salinas Guerra Consulting Physician: Salinas Guerra Reason for Consult: poor LV function on echo, chronic LE swelling Time Spent in preparation of Discharge (in minutes): 45 Diagnosis - Discharge Diagnosis (1) Bilateral lower extremity edema Status: Chronic (2) Cellulitis Status: Resolved (3) HTN (hypertension) Status: Chronic (4) Venous (peripheral) insufficiency Status: Chronic Hospital Course - Lab Results Lab Results: Micro Results 01/19/19 12:46 Blood-Venous Blood Culture - Preliminary NO GROWTH AFTER 4 DAYS 01/19/19 12:46 Blood-Venous Blood Culture - Preliminary NO GROWTH AFTER 4 DAYS 01/16/19 22:04 Blood Blood Culture - Final NO GROWTH AFTER 5 DAYS 01/16/19 22:04 Blood Gram Stain - Final TEST NOT PERFORMED 01/16/19 21:30 Blood Blood Culture - Final NO GROWTH AFTER 5 DAYS 01/16/19 21:30 Blood Gram Stain - Final TEST NOT PERFORMED 01/17/19 14:39 Leg - Left Gram Stain - Final 01/17/19 14:39 Leg - Left Wound Culture - Final Klebsiella Oxytoca Beta Hemolytic Strep Group B Most Recent Lab Values WBC 7.2 K/uL (4.8-10.8) 01/24/19 07:35 RBC 4.01 Mil/uL (4.40-5.90) L 01/24/19 07:35 Hgb 11.2 g/dL (12.0-18.0) L 01/24/19 07:35 Hct 33.8 % (35.0-51.0) L 01/24/19 07:35 MCV 84.2 fL (80.0-94.0) 01/24/19 07:35 MCH 28.0 pg (27.0-31.0) 01/24/19 07:35 MCHC 33.3 g/dL (33.0-37.0) 01/24/19 07:35 RDW 17.3 % (11.5-14.5) H 01/24/19 07:35 Plt Count 373 K/uL (130-400) 01/24/19 07:35 MPV 9.0 fL (7.2-11.7) 01/24/19 07:35 Neut % (Auto) 64.4 % (50.0-75.0) 01/24/19 07:35 Lymph % (Auto) 20.7 % (20.0-40.0) 01/24/19 07:35 [place] % (Auto) 9.0 % (0.0-10.0) 01/24/19 07:35 Eos % (Auto) 4.5 % (0.0-4.0) H 01/24/19 07:35 Baso % (Auto) 1.4 % (0.0-2.0) 01/24/19 07:35 Neut # (Auto) 4.6 K/uL (1.8-7.0) 01/24/19 07:35 Lymph # (Auto) 1.5 K/uL (1.0-4.3) 01/24/19 07:35 [place] # (Auto) 0.6 K/uL (0.0-0.8) 01/24/19 07:35 Eos # (Auto) 0.3 K/uL (0.0-0.7) 01/24/19 07:35 Baso # (Auto) 0.1 K/uL (0.0-0.2) 01/24/19 07:35 PT 14.4 SECONDS (9.7-12.2) H 01/16/19 21:52 INR 1.3 01/16/19 21:52 APTT 36 SECONDS (21-34) H 01/16/19 21:52 pO2 17 mm/Hg (30-55) L 01/16/19 21:58 VBG pH 7.38 (7.32-7.43) 01/16/19 21:58 VBG pCO2 50 mmHg (40-60) 01/16/19 21:58 VBG HCO3 25.6 mmol/L 01/16/19 21:58 VBG Total CO2 31.1 mmol/L (22-28) H 01/16/19 21:58 VBG O2 Sat (Calc) 28.3 % (40-65) L 01/16/19 21:58 VBG Base Excess 3.4 mmol/L (0.0-2.0) H 01/16/19 21:58 VBG Potassium 3.1 mmol/L (3.6-5.2) L 01/16/19 21:58 Sodium 143.0 mmol/l (132-148) 01/16/19 21:58 Chloride 111.0 mmol/L (98-107) H 01/16/19 21:58 Glucose 98 mg/dl (75-110) 01/16/19 21:58 Lactate 1.5 mmol/L (0.7-2.1) 01/16/19 21:58 Sodium 138 mmol/L (132-148) 01/24/19 07:35 Potassium 4.3 mmol/L (3.6-5.2) 01/24/19 07:35 Chloride 105 mmol/L (98-107) 01/24/19 07:35 Carbon Dioxide 26 mmol/L (22-30) 01/24/19 07:35 Anion Gap 11 (10-20) 01/24/19 07:35 BUN 14 mg/dL (9-20) 01/24/19 07:35 Creatinine 1.3 mg/dL (0.8-1.5) 01/24/19 07:35 Est GFR ( Amer) > 60 01/24/19 07:35 Est GFR (Non-Af Amer) 56 01/24/19 07:35 Random Glucose 110 mg/dL (75-110) 01/24/19 07:35 Calcium 9.0 mg/dl (8.6-10.4) 01/24/19 07:35 Phosphorus 4.6 mg/dL (2.5-4.5) H 01/24/19 07:35 Magnesium 2.2 mg/dL (1.6-2.3) 01/24/19 07:35 Total Bilirubin 0.3 mg/dL (0.2-1.3) 01/24/19 07:35 AST 36 U/L (17-59) 01/24/19 07:35 ALT 37 U/L (21-72) 01/24/19 07:35 Alkaline Phosphatase 57 U/L (38-126) 01/24/19 07:35 NT-Pro-B Natriuret Pep 100 pg/mL (0-900) 01/17/19 01:07 Total Protein 6.8 g/dL (6.3-8.3) 01/24/19 07:35 Albumin 3.2 g/dL (3.5-5.0) L 01/24/19 07:35 Globulin 3.6 gm/dL (2.2-3.9) 01/24/19 07:35 Albumin/Globulin Ratio 0.9 (1.0-2.1) L 01/24/19 07:35 Lipase 186 U/L (23-300) 01/16/19 21:52 Venous Blood Potassium 3.1 mmol/L (3.6-5.2) L 01/16/19 21:58 Urine Color Yellow (YELLOW) 01/16/19 21:52 Urine Clarity Hazy (Clear) 01/16/19 21:52 Urine pH 6.0 (5.0-8.0) 01/16/19 21:52 Ur Specific [place] 1.013 (1.003-1.030) 01/16/19 21:52 Urine Protein Negative mg/dL (NEGATIVE) 01/16/19 21:52 Urine Glucose (UA) Normal mg/dL (Normal) 01/16/19 21:52 Urine Ketones Negative mg/dL (NEGATIVE) 01/16/19 21:52 Urine Blood Trace (NEGATIVE) H 01/16/19 21:52 Urine Nitrate Negative (NEGATIVE) 01/16/19 21:52 Urine Bilirubin Negative (NEGATIVE) 01/16/19 21:52 Urine Urobilinogen 2.0 mg/dL (0.2-1.0) 01/16/19 21:52 Ur Leukocyte Esterase Neg [place]/uL (Negative) 01/16/19 21:52 Urine WBC (Auto) 3 /hpf (0-5) 01/16/19 21:52 Urine RBC (Auto) 1 /hpf (0-3) 01/16/19 21:52 Ur Squamous Epith Cells < 1 /hpf (0-5) 01/16/19 21:52 Hyaline Casts 2 /lpf (0-2) 01/16/19 21:52 Urine Osmolality 329 mosm/kg (300-1000) 01/20/19 09:16 Ur Random Sodium 113 mmol/L 01/20/19 09:16 Ur Random Potassium 7.4 mmol/L 01/20/19 09:16 Vancomycin Trough 10.5 ug/mL (5.0-10.0) H 01/21/19 10:58 C. difficile Ag & Toxin Negative (NEGATIVE) 01/22/19 03:11 Hep Bs Antigen Negative (NEGATIVE) 01/21/19 10:58 Hep Bs Antibody Negative (NEGATIVE) 01/21/19 10:58 Hep B Core IgM Ab Negative (NEGATIVE) 01/21/19 10:58 Hepatitis C Antibody Non reactive (Non Reactive) 01/21/19 10:58 Hep C Ab Signal/Cutoff 0.03 (<1.0) 01/21/19 10:58 - Hospital Course Hospital Course: 58 M w/ no PMHx presents to ED for leg pain/ leg ulcer / gangrene of b/l lower legs/ chronic venous changes. Patient states he has had leg pain for the last several months and it has been simply getting worse. Patient denies having received medical care. Patient denies trauma, injury to the legs. Patient states the ulcer on L leg occasionally has drainage from it. Patient cannot recall exact duration of leg condition and denies prolonged exposure to the cold weather. Patient states earlier today he had to pass a bowel movement; however, after prolonged duration of holding bowel movement and an inability to find a bathroom, patient had a bowel movement on himself. Patient denies urinary, bowel incontinences. ROS; Denies headaches, vision changes, nausea, vomiting, chest pain, SOB, abdominal pain, constipation, diarrhea, difficulty urinating, PMD: None PMHx: None PSHx: None Allergies: Denies FHx: Mother -breast Ca, Father - diabetes SHx: Denies smoking, drinking, drug use, states he lives in a rental Lower Extremity cellulitis and venous stasis ulcer CT LE: Diffuse lower extremities edema and subcutaneous stranding associated with slight skin thickening. The differential consideration includes CHF versus venous or arterial disease.No evidence of abscess formation or subcutaneous emphysema.No CT evidence of osteomyelitis. repeat Bcx - negative for 4 days wound culture - positive for klebsiella oxytoca, B hemolytic strep B - sensitive to vanco and cipro has better MAGAN continue Cipro 400 IVPB Q12H continue Vancomycin 1400 mg IVPB Q12H ID - Dr Guajardo/ Dr Escamilla - follow up recs for continuing IV or PO abx for possible d/c podiatry - Dr Pichardo - continue with local wound care, no plan for sx intervention at this time. Bilateral LE edema ,LV out flow obstruction f/u lower extremity duplex, - no evidence of DVT bilaterally Echo: EF WNL, AV opens with gradient, suggesting LV outflow obstruction chest x ray with congestion no evidence of renal dysfunction BUN/Cr WNL f/u Dr Guerra Cardio Consult recs Hypokalemia resolved today's k 4.2 -continue to monitor supplement as needed HTN - this am 144/74 - Losartan 100mg PO QD - Norvasc 5mg QD - Nephro - Dr Campos - follow up recs - avoid loop diuretics/thiazides due to hx of hypokalemia LE desquamation/dryness /poor hygiene - Lac-hydrin lotion 5gm BID - Clomitrazole cream Qdaily Abdominal discomfort/distention Patient states that his abdomen is same for a long time on examination not tender - abdominal US shows normal GB,fatty liver - continue to monitor - Simethicone PO Q6H PRN Diarrhea - c. diff toxin negative - continue to monitor PPX DVT: heparin Q8H GI: not indicated Tylenol PO Q6H PRN Hospital Course Pt seen by podiatry and Infectious disease, I&D was performed, ID put him on IV Vanc Zosyn, Pt was dc home on PO abx (Cipro and Augmentin) once sensitivities grew. Pt was also found to have leg swelling, Echo showed a low EF, pt is instructed to follow up in clinic Please take the following Medications as prescribed amLODIPine [Norvasc] 5 mg PO DAILY #30 tab Amoxicillin/Clavulanate [Augmentin 875 MG-125 MG] 1 tab PO BID #14 tab Ciprofloxacin [Cipro] 250 mg PO BID #14 tab Losartan [Cozaar] 50 mg PO DAILY #30 tab Saccharomyces Boulardi [Florastor] 250 mg PO TID #90 cap Please follow up with Dr Austin in the Clinic within 7 days Please follow up with Dr Pichardo your transformer mechanic in the clinic on Tuesday Please finish the 7 day course of your antibiotics Please change your wound dressings daily: wash and dry with normal saline and gauze, apply a thin layer of medihoney, cover with a dry gauze, wrap with the krylex gauze wrap, then wrap with the ISSA compression bandage. please don't miss your appointments take care and be well Wilfrid Pugh DO this is a summary, please refer to [facility] Discharge Exam - Head Exam Head Exam: ATRAUMATIC, NORMOCEPHALIC - Additional Findings Additional findings: - Constitutional Appears: No Acute Distress - Head Exam Head Exam: NORMAL INSPECTION - Eye Exam Eye Exam: EOMI, Normal appearance - ENT Exam ENT Exam: Mucous Membranes Moist - Respiratory Exam Respiratory Exam: Clear to Auscultation Bilateral, NORMAL BREATHING PATTERN. absent: Rales, Rhonchi, Wheezes, Respiratory Distress - Cardiovascular Exam Cardiovascular Exam: REGULAR RHYTHM, +S1, +S2 - GI/Abdominal Exam GI & Abdominal Exam: Distended, Normal Bowel Sounds. absent: Guarding, Mass, Tenderness - Exam Exam: absent: Scrotal Swelling - Extremities Exam Extremities exam: Positive for: pedal edema (bilateral (L>R) edema, improving). Negative for: normal inspection, tenderness, pedal pulses present (diminished due to edema b/l) Additional comments: Issa in place, dry, clean, and intact - Neurological Exam Neurological exam: Alert, Oriented x3 - Psychiatric Exam Psychiatric exam: Normal Affect, Normal Mood - Skin Skin Exam: Dry, Warm Discharge Plan - Discharge Medications Prescriptions: amLODIPine [Norvasc] 5 mg PO DAILY #30 tab Amoxicillin/Clavulanate [Augmentin 875 MG-125 MG] 1 tab PO BID #14 tab Ciprofloxacin [Cipro] 250 mg PO BID #14 tab Losartan [Cozaar] 50 mg PO DAILY #30 tab Saccharomyces Boulardi [Florastor] 250 mg PO TID #90 cap - Follow Up Plan Condition: FAIR Disposition: HOME/ ROUTINE Instructions: Varicose Veins and Other Vein Disease in the Legs, Ciprofloxacin (Systemic), Saccharomyces boulardii, High Blood Pressure (DC), Low Salt Diet, Amlodipine, Amoxicillin and Clavulanate, Losartan, Cellulitis (DC) Additional Instructions: Please take the following Medications as prescribed amLODIPine [Norvasc] 5 mg PO DAILY #30 tab Amoxicillin/Clavulanate [Augmentin 875 MG-125 MG] 1 tab PO BID #14 tab Ciprofloxacin [Cipro] 250 mg PO BID #14 tab Losartan [Cozaar] 50 mg PO DAILY #30 tab Saccharomyces Boulardi [Florastor] 250 mg PO TID #90 cap Please follow up with Dr Austin in the Clinic within 7 days Please follow up with Dr Pichardo your transformer mechanic in the clinic on Tuesday Please finish the 7 day course of your antibiotics Please change your wound dressings daily: wash and dry with normal saline and gauze, apply a thin layer of medihoney, cover with a dry gauze, wrap with the krylex gauze wrap, then wrap with the ISSA compression bandage. please don't miss your appointments take care and be well Wilfrid Pugh DO Referrals: Lois Pichardo DPM [Staff Provider] - Thuy Austin MD [Staff Provider] - <Ashutosh Burt - Last Filed: 01/24/19 18:23> Provider - Provider Date of Admission: 01/16/19 23:54 Attending physician: Munira Wills DO Consults: 01/16/19 23:57 Podiatry Consult Routine Comment: pressure ulcers Consulting Provider: Lois Pichardo Consulting Physician: Lois Pichardo Reason for Consult: presure ulcers 01/17/19 13:26 Infectious Disease Consult Routine Comment: Consulting Provider: Darrick Guajardo Consulting Physician: Darrick Guajardo Reason for Consult: LE cellulitis/edema 01/17/19 14:20 Nursing Referral for Wound Care Routine Comment: cellulitis and non healing left leg ulcer Physician Instructions: Reason For Exam: non-healing ulcer left lower leg/ b/l leg cellulit 01/19/19 15:12 Nephrology Consult Routine Comment: Consulting Provider: Anirudh Campos Consulting Physician: Anirudh Campos Reason for Consult: hypokalemia 01/21/19 08:11 Cardiology Consult Routine Comment: Consulting Provider: Salinas Guerra Consulting Physician: Salinas Guerra Reason for Consult: poor LV function on echo, chronic LE swelling Hospital Course - Lab Results Lab Results: Micro Results 01/19/19 12:46 Blood-Venous Blood Culture - Final NO GROWTH AFTER 5 DAYS 01/19/19 12:46 Blood-Venous Gram Stain - Final TEST NOT PERFORMED 01/19/19 12:46 Blood-Venous Blood Culture - Final NO GROWTH AFTER 5 DAYS 01/19/19 12:46 Blood-Venous Gram Stain - Final TEST NOT PERFORMED 01/16/19 22:04 Blood Blood Culture - Final NO GROWTH AFTER 5 DAYS 01/16/19 22:04 Blood Gram Stain - Final TEST NOT PERFORMED 01/16/19 21:30 Blood Blood Culture - Final NO GROWTH AFTER 5 DAYS 01/16/19 21:30 Blood Gram Stain - Final TEST NOT PERFORMED 01/17/19 14:39 Leg - Left Gram Stain - Final 01/17/19 14:39 Leg - Left Wound Culture - Final Klebsiella Oxytoca Beta Hemolytic Strep Group B Most Recent Lab Values WBC 7.2 K/uL (4.8-10.8) 01/24/19 07:35 RBC 4.01 Mil/uL (4.40-5.90) L 01/24/19 07:35 Hgb 11.2 g/dL (12.0-18.0) L 01/24/19 07:35 Hct 33.8 % (35.0-51.0) L 01/24/19 07:35 MCV 84.2 fL (80.0-94.0) 01/24/19 07:35 MCH 28.0 pg (27.0-31.0) 01/24/19 07:35 MCHC 33.3 g/dL (33.0-37.0) 01/24/19 07:35 RDW 17.3 % (11.5-14.5) H 01/24/19 07:35 Plt Count 373 K/uL (130-400) 01/24/19 07:35 MPV 9.0 fL (7.2-11.7) 01/24/19 07:35 Neut % (Auto) 64.4 % (50.0-75.0) 01/24/19 07:35 Lymph % (Auto) 20.7 % (20.0-40.0) 01/24/19 07:35 [place] % (Auto) 9.0 % (0.0-10.0) 01/24/19 07:35 Eos % (Auto) 4.5 % (0.0-4.0) H 01/24/19 07:35 Baso % (Auto) 1.4 % (0.0-2.0) 01/24/19 07:35 Neut # (Auto) 4.6 K/uL (1.8-7.0) 01/24/19 07:35 Lymph # (Auto) 1.5 K/uL (1.0-4.3) 01/24/19 07:35 [place] # (Auto) 0.6 K/uL (0.0-0.8) 01/24/19 07:35 Eos # (Auto) 0.3 K/uL (0.0-0.7) 01/24/19 07:35 Baso # (Auto) 0.1 K/uL (0.0-0.2) 01/24/19 07:35 PT 14.4 SECONDS (9.7-12.2) H 01/16/19 21:52 INR 1.3 01/16/19 21:52 APTT 36 SECONDS (21-34) H 01/16/19 21:52 pO2 17 mm/Hg (30-55) L 01/16/19 21:58 VBG pH 7.38 (7.32-7.43) 01/16/19 21:58 VBG pCO2 50 mmHg (40-60) 01/16/19 21:58 VBG HCO3 25.6 mmol/L 01/16/19 21:58 VBG Total CO2 31.1 mmol/L (22-28) H 01/16/19 21:58 VBG O2 Sat (Calc) 28.3 % (40-65) L 01/16/19 21:58 VBG Base Excess 3.4 mmol/L (0.0-2.0) H 01/16/19 21:58 VBG Potassium 3.1 mmol/L (3.6-5.2) L 01/16/19 21:58 Sodium 143.0 mmol/l (132-148) 01/16/19 21:58 Chloride 111.0 mmol/L (98-107) H 01/16/19 21:58 Glucose 98 mg/dl (75-110) 01/16/19 21:58 Lactate 1.5 mmol/L (0.7-2.1) 01/16/19 21:58 Sodium 138 mmol/L (132-148) 01/24/19 07:35 Potassium 4.3 mmol/L (3.6-5.2) 01/24/19 07:35 Chloride 105 mmol/L (98-107) 01/24/19 07:35 Carbon Dioxide 26 mmol/L (22-30) 01/24/19 07:35 Anion Gap 11 (10-20) 01/24/19 07:35 BUN 14 mg/dL (9-20) 01/24/19 07:35 Creatinine 1.3 mg/dL (0.8-1.5) 01/24/19 07:35 Est GFR ( Amer) > 60 01/24/19 07:35 Est GFR (Non-Af Amer) 56 01/24/19 07:35 Random Glucose 110 mg/dL (75-110) 01/24/19 07:35 Calcium 9.0 mg/dl (8.6-10.4) 01/24/19 07:35 Phosphorus 4.6 mg/dL (2.5-4.5) H 01/24/19 07:35 Magnesium 2.2 mg/dL (1.6-2.3) 01/24/19 07:35 Total Bilirubin 0.3 mg/dL (0.2-1.3) 01/24/19 07:35 AST 36 U/L (17-59) 01/24/19 07:35 ALT 37 U/L (21-72) 01/24/19 07:35 Alkaline Phosphatase 57 U/L (38-126) 01/24/19 07:35 NT-Pro-B Natriuret Pep 100 pg/mL (0-900) 01/17/19 01:07 Total Protein 6.8 g/dL (6.3-8.3) 01/24/19 07:35 Albumin 3.2 g/dL (3.5-5.0) L 01/24/19 07:35 Globulin 3.6 gm/dL (2.2-3.9) 01/24/19 07:35 Albumin/Globulin Ratio 0.9 (1.0-2.1) L 01/24/19 07:35 Lipase 186 U/L (23-300) 01/16/19 21:52 Venous Blood Potassium 3.1 mmol/L (3.6-5.2) L 01/16/19 21:58 Urine Color Yellow (YELLOW) 01/16/19 21:52 Urine Clarity Hazy (Clear) 01/16/19 21:52 Urine pH 6.0 (5.0-8.0) 01/16/19 21:52 Ur Specific [place] 1.013 (1.003-1.030) 01/16/19 21:52 Urine Protein Negative mg/dL (NEGATIVE) 01/16/19 21:52 Urine Glucose (UA) Normal mg/dL (Normal) 01/16/19 21:52 Urine Ketones Negative mg/dL (NEGATIVE) 01/16/19 21:52 Urine Blood Trace (NEGATIVE) H 01/16/19 21:52 Urine Nitrate Negative (NEGATIVE) 01/16/19 21:52 Urine Bilirubin Negative (NEGATIVE) 01/16/19 21:52 Urine Urobilinogen 2.0 mg/dL (0.2-1.0) 01/16/19 21:52 Ur Leukocyte Esterase Neg [place]/uL (Negative) 01/16/19 21:52 Urine WBC (Auto) 3 /hpf (0-5) 01/16/19 21:52 Urine RBC (Auto) 1 /hpf (0-3) 01/16/19 21:52 Ur Squamous Epith Cells < 1 /hpf (0-5) 01/16/19 21:52 Hyaline Casts 2 /lpf (0-2) 01/16/19 21:52 Urine Osmolality 329 mosm/kg (300-1000) 01/20/19 09:16 Ur Random Sodium 113 mmol/L 01/20/19 09:16 Ur Random Potassium 7.4 mmol/L 01/20/19 09:16 Vancomycin Trough 10.5 ug/mL (5.0-10.0) H 01/21/19 10:58 C. difficile Ag & Toxin Negative (NEGATIVE) 01/22/19 03:11 Hep Bs Antigen Negative (NEGATIVE) 01/21/19 10:58 Hep Bs Antibody Negative (NEGATIVE) 01/21/19 10:58 Hep B Core IgM Ab Negative (NEGATIVE) 01/21/19 10:58 Hepatitis C Antibody Non reactive (Non Reactive) 01/21/19 10:58 Hep C Ab Signal/Cutoff 0.03 (<1.0) 01/21/19 10:58 Attending/Attestation - Attestation I have personally seen and examined this patient.: Yes I have fully participated in the care of the patient.: Yes I have reviewed all pertinent clinical information, including history, physical exam and plan: Yes Notes (Text): 01/24/19 18:20 Medical attending: Patient was seen and examined by me. Agree with the above note by the resident The patient was not in any acute distress when we came and saw him Patient will be discharged today with supplies including ISSA wraps, Kerlix wraps, 4 x 4s, and also will need lac hydtrin lotion and also sterile saline. He also needed pants as well and we will send him with Also the program medical director has filled out the paper work so that he can go home with a supply of medication The patient is aware he will need follow up at the clinic as well as with podiatry thank you Ashutosh Burt
[2019-01-24 09:32] VITALS: BP 152/84; PULSE 80
[2019-01-24] MEDS: Saccharomyces Boulardi 250 mg Cap PO SCH ×2 (09:33→13:40)
[2019-01-24] MEDS: Ammonium Lactate 12% Lotion (225 g) EXT SCH (09:40)
[2019-01-24] MEDS: Clotrimazole 1% Cream 15 GM TUBE TOP SCH (09:40)
--- NOTE | 2019-01-24 15:58 | CP.PCM.PN ---
Subjective - Date & Time of Evaluation Date of Evaluation: 01/24/19 Time of Evaluation: 13:00 - Subjective Subjective: Podiatry Progress Note- Dr. Pichardo 58 y/o male with no reported past medical history seen at bedside for left leg ulcer. Patient denies acute overnight events. Reports doing well. Denies of pain to the left leg. Patient reports has bee walking without issues. Denies tingling, numbness or burning in the lower extremities. Denies F/C/N/V/CP/SOB Objective - Vital Signs/Intake and Output Vital Signs (last 24 hours): Temp Pulse Resp BP Pulse Ox 98.8 F 80 18 152/84 H 97 01/24/19 07:30 01/24/19 09:31 01/24/19 07:30 01/24/19 09:31 01/24/19 07:30 Intake and Output: 01/24/19 01/24/19 06:59 18:59 Intake Total 2100 Output Total 3600 Balance -1500 - Medications Medications: Current Medications Acetaminophen (Tylenol 325mg Tab) 650 mg PO Q6 PRN PRN Reason: Fever >100.4 F Last Admin: 01/20/19 23:01 Dose: 650 mg Amlodipine Besylate (Norvasc) 5 mg PO DAILY [facility] Last Admin: 01/24/19 09:32 Dose: 5 mg Clotrimazole (Lotrimin 1%) 1 gm TOP DAILY [facility] Last Admin: 01/24/19 09:40 Dose: 1 gm Heparin Sodium (Porcine) (Heparin) 5,000 units SC Q8 [facility] Last Admin: 01/24/19 13:40 Dose: Not Given Ciprofloxacin (Cipro 400mg/200ml Dsw) 400 mg in 200 mls @ 133 mls/hr IVPB Q12H [facility]; Protocol Last Admin: 01/24/19 04:32 Dose: 133 mls/hr Vancomycin HCl 1,400 mg/ (Sodium Chloride) 500 mls @ 300 mls/hr IVPB Q12H [facility]; Protocol Stop: 01/24/19 21:01 Last Admin: 01/24/19 09:32 Dose: 300 mls/hr Lactic Acid (Lac-Hydrin 12% Lotion (225 G)) 5 gm EXT BID [facility] Last Admin: 01/24/19 09:40 Dose: 1 applic Loratadine (Claritin) 10 mg PO DAILY [facility] Last Admin: 01/24/19 09:33 Dose: 10 mg Losartan Potassium (Cozaar) 100 mg PO DAILY [facility] Last Admin: 01/24/19 09:33 Dose: 100 mg Saccharomyces Boulardii (Florastor) 250 mg PO TID [facility] Last Admin: 01/24/19 13:40 Dose: Not Given Simethicone (Mylicon Chew Tab) 80 mg PO Q6H PRN PRN Reason: GI distress - Labs Labs: 01/24/19 07:35 01/24/19 07:35 PT 14.4 SECONDS (9.7-12.2) H 01/16/19 21:52 INR 1.3 01/16/19 21:52 APTT 36 SECONDS (21-34) H 01/16/19 21:52 - Constitutional Appears: Well, Non-toxic, No Acute Distress - Extremities Exam Extremities Exam: absent: Calf Tenderness Additional comments: Lower extremity exam: Vasc: DP/PT pulses palpable 2/4. Temperature gradient is warm to cool. CFT < 3 sec to all digits. Non-pitting edema noted to B/L lower extremities distal to tibial tuberosity extending to dorsum of foot. Derm: Open ulceration noted to lateral aspect of left mid leg measuring approximatewly 7cm x 7cm x 0.1cm with additional smaller ulcerations proximal and posterior approx 2cm x 1 cm x 0.1cm and 1cm x 3cm x 0.1cm in size. All wounds exhibit 100% granular wound bases with regular wound borders. Minimal serous drainage noted from wounds on previous dressing. No active drainage or purulence, no malodor, no fluctuance or abscess formation Neuro: protective sensation grossly intact Ortho: no tenderness to palpation of left leg ulcer. No tenderness on posterior calf squeeze B/L - Neurological Exam Neurological Exam: Alert, Awake, Oriented x3 - Psychiatric Exam Psychiatric exam: Normal Affect, Normal Mood Assessment and Plan - Assessment and Plan (Free Text) Assessment: 58 y/o male with left leg ulceration likely secondary to venous stasis- improving Plan: Patient seen and evaluated Discussed plan with Dr. Pichardo Lower extremity CT reviewed- no acute findings suggestive of underlying bone infection or abscess/fluid collection Local wound care- site cleaned with saline and dressed with betadine, ABD, DSD and GARRETT compression Venous duplex negative for DVT No plan for surgical intervention at this time Will continue to provide local wound care while in house Applied AmLactin to lower extremity bilaterally Patient may WBAT Patient may follow with Dr Pichardo upon discharge Patient to change dressing 2-3 times per week as instructed Follow up with Dr. Pichardo in clinic on Tuesday
== END 2019-01-24 17:50 | disposition home or self-care (01) | DRG 300 ==
LOC: C.ER 20:02 → C.9E 23:54 → C.5S 01-17 07:19
PROVIDERS: ADMIT Hospitalist; ATTEND Hospitalist
DX: I83.028 Varicose veins of left lower extremity with ulcer other part of lower leg (principal); L97.829 Non-pressure chronic ulcer of other part of left lower leg with unspecified severity; L03.116 Cellulitis of left lower limb; L03.115 Cellulitis of right lower limb; I96 Gangrene, not elsewhere classified; G89.29 Other chronic pain; E87.6 Hypokalemia; I10 Essential (primary) hypertension

== ENCOUNTER 2019-01-24 20:55 | Emergency (ER) | payer SELFPAY ==
--- NOTE | 2019-01-24 21:40 | C.PDOC ---
History Of Present Illness Patient is a 58 year old male who presents to the ED c/o fleeting episode of mid sternal and pericardial pain that lasted for about 20 seconds as he was walking down the street today. Patient states that this pain made him feel SOB and he couldn't continue to walk. Patient was uncooperative with giving more history and kept stating "go look in the record". 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 He was seen by podiatry and had abscesses drained. Patient was discharged from the hospital today with antibiotics Cipro and Augmentin and has a follow up appointment in the clinic in 5 days. He denies any injuries associated with his ulcers. Time Seen by Provider: 01/24/19 21:09 Chief Complaint (Nursing): Chest Pain History Per: Patient History/Exam Limitations: no limitations Onset/Duration Of Symptoms: Hrs Recent travel outside of the [place]: No Additional History Per: Patient Past Medical History Reviewed: Historical Data, Nursing Documentation, Vital Signs Vital Signs: Last Vital Signs Temp 98.4 F 01/24/19 21:08 Pulse 85 01/24/19 21:19 Resp 16 01/24/19 21:08 BP 147/63 01/24/19 21:19 Pulse Ox 97 01/24/19 21:08 - Medical History PMH: Peripheral Edema, Chronic Pain (and cellulitis to B/L legs) Surgical History: No Surg Hx Family History: States: Unknown Family Hx - Social History Hx Tobacco Use: No Hx Alcohol Use: No Hx Substance Use: No - Immunization History Hx Tetanus Toxoid Vaccination: No Hx Influenza Vaccination: No Hx Pneumococcal Vaccination: No Review Of Systems Cardiovascular: Positive for: Chest Pain (mid sternal and pericardial ) Respiratory: Positive for: Shortness of Breath Musculoskeletal: Positive for: Leg Pain (bilateral ulcers to lower legs ) Physical Exam - Physical Exam Appears: Non-toxic, No Acute Distress Skin: Warm, Dry, Other (scaly skin on left lower leg ) Head: Atraumatic, Normacephalic Neck: Supple Chest: Symmetrical, No Deformity Cardiovascular: Rhythm Regular, No Murmur Respiratory: Normal Breath Sounds, No Rales, No Rhonchi, No Wheezing Gastrointestinal/Abdominal: Soft Extremity: Other (lower left leg well granulated clean superficial wound, chronic venous stasis ) Neurological/Psych: Other (awake and alert ) ED Course And Treatment - Laboratory Results Result Diagrams: 01/24/19 21:56 01/24/19 21:56 Lab Interpretation: No Acute Changes ECG: Interpreted By Me ECG Rhythm: Sinus Rhythm ECG Interpretation: No Acute Changes O2 Sat by Pulse Oximetry: 97 (on RA) Pulse Ox Interpretation: Normal - Radiology CXR: Interpreted by Me CXR Interpretation: Yes: No Acute Disease, Cardiomegaly Reevaluation Time: 00:15 Reassessment Condition: Improved (Patient remains comfortable in ED.) Medical Decision Making Medical Decision Making: Plan: EKG CXR Labs Patient admits to being discharged from the hospital today and states that "he does not feel good". Disposition Counseled Patient/Family Regarding: Studies Performed, Diagnosis, Need For Followup - Disposition Referrals: [facility] [Outside] Disposition: HOME/ ROUTINE Disposition Time: 00:18 Condition: STABLE Instructions: Chest Pain That Is Not Caused by the Heart (DC), Swelling Forms: [facility] (Yi) - Clinical Impression Clinical Impression: Precordial pain, Skin ulcer, Venous (peripheral) insufficiency, Bilateral lower extremity edema - Scribe Statement The provider has reviewed the documentation as recorded by the Scribkindra Jones All medical record entries made by the Scribe were at my direction and personally dictated by me. I have reviewed the chart and agree that the record accurately reflects my personal performance of the history, physical exam, medical decision making, and the department course for this patient. I have also personally directed, reviewed, and agree with the discharge instructions and disposition.
[2019-01-24 22:05] LABS: BASO # 0.1 K/uL (0.0-0.2); BASO % 0.9 % (0.0-2.0); EOS # 0.3 K/uL (0.0-0.7); EOS % 3.6 % (0.0-4.0); HEMOGLOBIN 11.9 g/dL (12.0-18.0); LYMPH # 1.8 K/uL (1.0-4.3); LYMPH % 20.3 % (20.0-40.0); MEAN CORPUSCULAR HGB CONC 32.2 g/dL (33.0-37.0); MEAN PLATELET VOLUME 8.9 fL (7.2-11.7); MONO # 0.8 K/uL (0.0-0.8); MONO % 8.9 % (0.0-10.0); NEUT # 5.9 K/uL (1.8-7.0); NEUT % 66.3 % (50.0-75.0); RBC 4.42 Mil/uL (4.40-5.90); RED CELL DISTRIBUTION WIDTH 17.3 % (11.5-14.5); WHITE BLOOD COUNT 8.8 K/uL (4.8-10.8)
[2019-01-24 22:30] LABS: ALB/GLOB RATIO 0.9 (1.0-2.1); ALBUMIN 3.6 g/dL (3.5-5.0); ALT/SGPT 32 U/L (21-72); AST/SGOT 45 U/L (17-59); BLOOD UREA NITROGEN 16 mg/dL (9-20); CALCIUM 9.1 mg/dl (8.6-10.4); GFR NON-AFRICAN AMERICAN > 60
[2019-01-25 00:55] VITALS: BP 143/80; PULSE 80; RESP 18; TEMP 98; O2SAT 98
--- NOTE | 2019-01-25 10:34 | RAD ---
Date of service: 01/24/2019 HISTORY: Chest pain and shortness of breath COMPARISON: 01/19/2019. TECHNIQUE: Chest PA and lateral FINDINGS: LINES AND TUBES: None. LUNG AND PLEURA: The lungs are well inflated. There is mild pulmonary venous congestion. Small left pleural effusion. No pneumothorax HEART AND MEDIASTINUM: Mild cardiomegaly. No aortic atherosclerotic calcifications present. The hilar and mediastinal contours are within normal limits. SKELETAL STRUCTURES: The bony structures are within normal limits for the patient's age. VISUALIZED UPPER ABDOMEN: Normal. OTHER FINDINGS: None. IMPRESSION: Small left pleural effusion and mild pulmonary venous congestion.
--- NOTE | 2019-01-25 15:24 | CARD ---
APPROVED REPORT Date of service: 01/24/2019 EKG Measurement Heart [id number] <Conclusion> Normal sinus rhythm Possible Left atrial enlargement Prolonged QT Abnormal ECG
== END 2019-01-25 00:59 | disposition home or self-care (01) ==
LOC: C.ER 20:55
DX: R07.2 Precordial pain (principal); R60.0 Localized edema; I87.2 Venous insufficiency (chronic) (peripheral); L97.929 Non-pressure chronic ulcer of unspecified part of left lower leg with unspecified severity; L97.919 Non-pressure chronic ulcer of unspecified part of right lower leg with unspecified severity

== ENCOUNTER 2019-01-29 20:50 | Emergency (ER) | payer SELFPAY | END 2019-01-29 21:47 | disposition left against medical advice (07) | LOC: C.ER 20:50 | DX: Z02.89 Encounter for other administrative examinations (principal) ==